=== PATIENT | female | born 1990 | race Caucasian/White ===

== ENCOUNTER 2024-11-04 13:53 | Outpatient (REF) | payer MEDICARE, MEDICAID, SELFPAY ==
[2024-11-04 15:22] LABS: MANUAL DIFF FLAG NO
[2024-11-04 17:32] LABS: Hematocrit 37.6 % (37.0-47.0); Hemoglobin 12.6 g/dl (12.0-16.0); Imm Gran Abs Auto 0.02 X10*3/uL (0.00-0.03); Imm Gran Pct Auto 0.5 % (0.0-0.4); Lymphocytes Absolute Auto 1.1 X10*3/uL (1.2-4.9); Mean Corpuscular HGB Conc 33.5 g/dl (31.0-35.0); Mean Corpuscular Hemoglobin 31.0 pg (27.0-33.0); Mean Corpuscular Volume 92.6 fL (80.0-98.0); NRBC Abs Auto 0.000 X10*3/uL (0.0-0.012); NRBC Pct Auto 0.0 /100WBC (0.0-0.2); Platelet Count 261 X10*3/uL (160-400); Red Blood Count 4.06 X10*6/uL (4.20-5.50); White Blood Count 3.8 X10*3/uL (4.8-10.8)
[2024-11-04 18:03] LABS: Alanine Aminotransferase 24 U/L (0-31); Albumin Level 4.3 g/dL (3.5-5.0); Alkaline Phosphatase 79 U/L (39-117); Anion Gap 11 (12-20); Aspartate Amino Transferase 19 U/L (5-31); Blood Urea Nitrogen 12 mg/dL (9-16); Calcium 9.3 mg/dL (8.4-10.2); Carbon Dioxide 23 mmol/L (22-29); Chloride 112 mmol/L (96-108); Estimated Glomerular Filt Rate > 60; Potassium 4.4 mmol/L (3.3-5.1); Sodium 142 mmol/L (135-145); Total Protein 7.1 g/dL (6.5-8.0)
[2024-11-04 18:27] LABS: Folate 12.8 ng/mL (> or = 4.0); Vitamin B12 374 pg/mL (200-900)
== END 2024-11-04 13:54 | disposition home or self-care (01) ==
LOC: HO.LAB 13:53
PROVIDERS: PCP Physician Assistant Medical; Visit Provider Physician Assistant Medical
DX: G40.909 Epilepsy, unspecified, not intractable, without status epilepticus (principal); E03.9 Hypothyroidism, unspecified; E66.9 Obesity, unspecified; F81.9 Developmental disorder of scholastic skills, unspecified; Z79.890 Hormone replacement therapy; Z79.899 Other long term (current) drug therapy; Z68.39 Body mass index [BMI] 39.0-39.9, adult
CPT/HCPCS: 36415; 80053; 82607; 82746; 84443; 85025

== ENCOUNTER 2025-02-02 10:45 | Outpatient (AMB) | payer OTHER, SELFPAY ==
--- OUTSIDE RECORDS SUMMARY | 2025-01-26 09:55 | XMS_ITS | Encounter Summary ---
Author Organization [facility] Address [address] [place] [phone] Phone Care Team Providers Care Deputy Director Of Finance Name Role Phone Passer, Joy RIVERA Primary Care Provider + Reason for Visit * Auth/Cert (Routine) Specialty Diagnoses / Procedures Referred By Tae t Referred To Contact Diagnoses Localization-related (focal) (partial) symptomatic epilepsy and epileptic syndromes with complex partial seizures, intractable, without status epilepticus Procedures PA EEG PHYS/QHP EA INCR>12HR<26HR AFTER 24HR W/VEEG Referral ID Status Reason Start Date Expiration Date Visits Re quested Visits Authorized [id number] 1 1 Encounter Details Date Type Department Care Team (Latest Contact Info) Description 01/26/2025 9:55 AM EST - 01/30/2025 12:44 PM EST Hospital Encounter [facility] [address] [place] [id number] Margot Martin MD, PhD 60 [facility] [id number] [place] [address] [email or web address] Discharge Disposition: Home or Self Care Social History Tobacco Use Types Packs/Day Years Used Date Smoking Tobacco: Never Smokeless Tobacco: Never Education Answer Date Recorded Are you interested in more education? Not on marie e 10/14/2024 Are you concerned about learning? Not on file 10/14/2024 No 10/14/2024 No 10/14/2024 Food Answer Date Recorded Within the past 6 months we worried whether our food would run out before we got money to buy more. Never True 01/26/2025 Within the past 6 months the food we bought just didn't last and we didn't have enough money to get more. Never True Residential Stability Answer Date Recor ded What is your housing situation today? I am stayi ng with others 01/26/2025 How many times have you move d in the past 12 months? One time 01/26/2025 Paying for Meds Answer Date Recorded Do you have trouble paying for medicines? No 01/26/2025 Paying Utility Bills Answer Date Record ed Do you have trouble paying your heating or elect ricity bill? No 01/26/2025 Transportation Answer Date Recorded Has the lack of transportati on kept you from medical appointments or from getting medications? No 01/26/2025 Digital Access Answer Date Recorded No 01/26/2025 Yes 01/26/2025 Do you have reliable internet access at home? Ye s 01/26/2025 Do you have a device (e.g., phone, tablet, computer) with a working camera? Yes 01/26/2025 Intimate Partner Violence Answer Date R ecorded Are you denied basic needs s uch as food, clothing, or medical care? No 01/26/2025 In the past 12 months have y ou been in a relationship with a person who hurts, threatens, or tries to control you? No 01/26/2025 Are you denied basic needs s uch as food, clothing, or medical care? No 01/26/2025 In the past 12 months have y ou been in a relationship with a person who hurts, threatens, or tries to control you? No 01/26/2025 Comments Unknown Sex and Gender Information Value Date Recorded Sex Assigned at Female 12/16/2024 8:49 PM EDT Legal Sex Female 10:05 AM EDT Gender Identity Female 12/16/2024 8:49 PM EDT Sexual Orientation Not on file documented as of this encounter Last Filed Vital Signs Vital Sign Reading Time Taken Comments Blood Pressure 121/69 01/30/2025 4:13 AM EST Pulse 88 01/30/2025 10:00 AM EST Temperature 37.1 C (98.7 F) 01/30/2025 4:13 AM EST Respiratory Rate 18 01/30/2025 4:13 AM EST Oxygen Saturation 97% 01/30/2025 10: 00 AM EST Inhaled Oxygen Concentration - - Weight 101.4 kg (223 lb 8.7 oz) 025 10:35 AM EST Height 162.6 cm (5' 4 ) 01/26/2025 10:3 5 AM EST Body Mass Index 38.37 01/26/2025 10:35 AM EST documented in this encounter Functional Status * Calculated C-SSRS Risk Score (Lifetime/Recent) Answer Date of Assessment Author No Risk Indicated 01/26/2025 10:15 AM EST Florin Khan RN * [place] Suicide Severity Rating Scale (Screener/Recent Self-Report) Question Answer Date of Assessment Author 1. Wish to be (Past 1 Month) No 01/26/2025 10:15 AM EST Myra Valero RN 2. Non-Specific Active Suici zeynep Thoughts (Past 1 Month) No 01/26/2025 10:15 AM EST Samantha Valero RN 6. Suicidal Behavior (Lifetime) No 10:15 AM EST Florin Valero RN documented as of this encounter Discharge Instructions * Discharge Instructions* Ria Edwards CNP - 01/27/2025 8:21 AM EST Dear Tawana Machado, You were admitted to the [facility] Epilepsy Monitoring Unit because of breakthrough seizures despite yourhome antiseizure medications of Keppra (Levetiracetam) 2000mg twice a day, Oxcarbazepine 600mg in the am and 1200mg in the pm, Zonisamide 400mg nightly, and Lacosamide 50mg nightly. Your outpatient e pileptologist recommended an admission to better characterize your seizures in order to change medications slightly and potentially prepare for surgical planning We captured 2 generalized tonic clonic and 1 focal impaired aware event. Your EEG showed seizures coming from the right frontal part of your brain. Based on these results, we restarted you on your home medications and monitored you for 24hours prior to discharge. You did not have any further seizures and you tolerated the medications well. When you go home, your antiseizure medication regimen should be: Keppra (Levetiracetam) 2000mg twice a day Oxcarbazepine 300mg in the am and 600mg in the pm Zonisamide 400mg nightly, Lacosamide 100mg twice a day. We would like to make you aware of Sudden Unexpected in Epilepsy (SUDEP) which is a rare but serious complication that can occur in individuals with epilepsy. While the exact cause of SUDEP is not fully understood, it is believed to be related to a combination of factors. Although the thoughtof SUDEP can be frightening, there are steps we can take to minimize the risk including: medicationadherence, regular follow-up, lifestyle management, safety precautions, education and support. [email or web address]://[email or web address].com/complications-risks/cyiza-nroox-rtcmz If you have any questions or concerns, please reach out. Number to page for coverage for [phone] ask for your Doctor to be paged. During weekday hours, the number is [phone] We are in the process of arranging a follow-up appointment for you, and will message you via [facility] once this is scheduled. If you do not hear from us in the next several days please call [phone] in order to schedule your appointment. It has been a pleasure caring for you this admission, and we wish you the best of health and wellness. - [facility] Epilepsy Team * Provider Post Hospital Follow Ups* Ria Edwards CNP - 01/30/2025 10:06 AM EST Discharged on: LEV 2000mg BID OXC 300/600mg LCM 100mg BID ZNS 400mg qHS Consider lowering OXC slowly in out patient setting documented in this encounter Medications at Time of Discharge clotrimazole-beta methasone (LOTRISONE) cream 11/16/2024 folic acid (FOLVITE) 1 MG tablet Take 1 tablet by mouth every morning. 11/05/2024 levETIRAcetam (KEPPRA) 1000 MG IMMEDIATE release tabletIndications :Localization-rel ated symptomatic epilepsy and epileptic syndromes with complex partial seizures, intractable, without status epilepticus Take 2 tablets (2,000 mg total) by mouth 2 (two) times a day. 120 tablet 11 12/16/2024 levothyroxine (SYNTHROID, LEVOTHROID) 112 MCG tablet TOME 1 TABLETA POR BOCA TODOS LOS PAULINO EN LA HYDE PARKANA 09/16/2024 NAYZILAM 5 mg/spray (0.1 mL) [place] nasal sprayIndications: Localization-rela jose symptomatic epilepsy and epileptic syndromes with complex partial seizures, intractable, without status epilepticus USE 5 MG (1 SPRAY) ONCE A SINGLE DOSE IN 1 NOSTRIL NEEDED (TO PREVENT SEIZURE CLUSTERS) 2 each 01/20/2025 zonisamide (ZONEGRAN) 100 MG capsuleIndication s:Localization-re lated symptomatic epilepsy and epileptic syndromes with complex partial seizures, intractable, without status epilepticus Take 4 capsules (400 mg total) by mouth nightly at bedtime. 120 capsule 11 12/16/2024 lacosamide (VIMPAT) 100 mg Tab Take 1 tablet (100 mg total) by mouth 2 (two) times a day. 180 tablet 1 01/29/2025 OXcarbazepine (TRILEPTAL) 300 MG IMMEDIATE release tablet Take 1 tablet (300 mg total) by mouth daily. 90 tablet 1 01/30/2025 OXcarbazepine (TRILEPTAL) 600 MG IMMEDIATE release tablet Take 1 tablet (600 mg total) by mouth nightly at bedtime. 90 tablet 1 01/29/2025 documented as of this encounter Progress Notes Only the most recent of 3 notes is shown. * Aspen Fernandez RN - 01/30/2025 12:42 PM EST Nursing Progress Note Discharge Note: DC instructions reviewed with the patient's parents and aunt, verbal understanding noted. Left unit via wheelchair, her family is providing the ride home. Belongings and paperwork sent. documented in this encounter H&P Notes * Noni Owen CNP - 01/26/2025 2:52 PM EST . EPILEPSY EBB ADMISSION NOTE Patient detail: Tawana Machado : 1990 AGE: 35 y.o. Handedness: right-handed PCP: Joy Garland PA Referring Physician (to EBB): Dr. Urabn EBB admission date: 01/26/25 Anticipated duration of inpatient stay: 3-5 days CC: Medically refractory epilepsy HPI Tawana Machado is a 35 y.o. 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 Urban on 12/16/2024. She was referred by Dr. Maki Goetz at [facility] (switching providers given insurance change). She had history of epilepsy since age 6. Previously she had generalized tonic- clonic seizures 2-3 times per year. Per EHR, starting in April 2024 she had evolution of seizures with lip cyanosis and shivering without stiffness occurring 1-2 times per week. Current ASM regimen as listed below. There was concern for intolerable side effects including dizziness, weakness, and irritability, and side effects worse since starting lacosamide. Seizure frequency decreased after starting locosamide Parents are concerned for her fall risk. She had EMU admission in [place] in 2019, records not available. She had no seizures since Oct 12 until 01/13 and then had one last night. On Jan 13 she had a ~4 min seizure with full body shaking. It was the biggest seizure they had ever seen in her. They called 911 because it lasted so long and took time to come back to baseline. Shehad trouble breathing during it and her lips got blue. They used the nayzilam but it did not seem to work as fast at it should. Last night she had a seizure last night with shaking and confusion, it l asted about 3 minutes. Seizures became more frequent in March and they moved here from [place] in July. She is admitted for phase I pre-surgical evaluation, likely not candidate for resection given diffuse malformation. May consider neurostimulation device. Additionally, goal of admission to adjust ASMs given side effect profile. Trileptal was decreased after 12/16/24 visit to evaluate if dizziness and balance concerns improve. She lives with mother and father. They sleep in the same room with her and watch overnight. Current ASMs: -Keppra 2g BID -Oxcarbazepine 600 mg AM/ 1200 mg qhs (decreased from 900/1200 at last visit with Dr. Urban) -Zonisamide 400 mg qhs -Lacosamide 50 mg BID (has not been giving it in the morning) -Midazolam nasal rescue ROS General: The patient denies recent fevers, chills, or sick contacts. Neuro: The patient denies recent headaches, double vision, or blurry vision. Denies focal numbness or weakness. recent falls. +imbalance is less since no lacosamide in AM Resp/Cardiac: The patient denies recent cough, chest pain GI/: The patient denies recent abdominal pain, currently menstruating Endo: The patient denies recent weight loss, weight gain Psych: Reports mood as cool is some times irritable in mornings Past History Description of spells/seizures: Semiology Type I Patient's own word description of event: full body rigid ILAE Classification (if applicable): Unknown onset unclassified (due to inadequate information or inability to place in other categories) Aura: no Ictal: During the seizure, the patient will have high pitched inspiration, unresponsive, arms posturing out, lips blue, tongue bite, occasional urinary incontinence Seizure duration:3-4 min Post ictal: confusion Frequency: ~1-2x per week->now only 2x this current month Triggers: unknown Semiology Type II Patient's own word description of event: shivering ILAE Classification (if applicable): Unknown onset unclassified (due to inadequate information or inability to place in other categories) Aura: no Ictal: During the seizure, the patient will have R>L shaking says cu cu cu similar etiology totype I. Seizure duration: 3 to 4 min. Post ictal: 30 minutes or so of confusion, some full body rigidity Frequency: at most 1-2x per week, recently 2x this current month Triggers: unknown Prior ASMs tried: (Brand/generic name) Reason for discontinuation: Tegretol/carbamazepine (CBZ) unknown Previous investigations: EEG: Video EEG 2022: Right Temporal lobe epileptiform discharges. Routine EE06/10/2024 Right Frontotemporal epileptogenic sharps Routine EEG 04/05/2022 Normal MRI: MRI Brain August 05, 2024: Right Cerebral Hemisphere hamartomatous Overgrowth, consistent with right Hemimegalencephaly, Pachygyria/Polymicrogyria spectrum. Please see media for report. 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 Myoclonic jerks: no Photosensitivity: yes, closes R eye to light Motor milestones: delayed Language milestones: delayed; does not read, limited writing Schooling/Education: special education until age 21yr Prior episode of status epilepticus: none (possible repeated seizures one time in life) Frequency of convulsive seizures: as above Prior ICU admission: none First seizure: Age 6 Longest seizure-free time: about 1.5 yrs maybe 8 yrs ago Diurnal variation: Seizures occur only during sleep Relation to menstrual cycle: no Triggers: unknown Injuries sustained due to seizures: none but has fallen out of bed Past Medical and Surgical History: No past medical history on file. No past surgical history on file. Past psychiatric history: none No current facility-administered medications on file prior to encounter. Current Outpatient Medications on File Prior to Encounter Medication Sig Dispense Refill Last Dispense clotrimazole-betamethasone (LOTRISONE) cream Unknown (patient-reported) folic acid (FOLVITE) 1 MG tablet Take 1 tablet by mouth every morning. Unknown (patient-reported) lacosamide (VIMPAT) 50 mg Tab Take 1 tablet (50 mg total) by mouth 2 (two) times a day. (Patient taking differently: Take 50 mg by mouth nightly at bedtime.) 60 tablet 5 Unknown (outside pharmacy) levETIRAcetam (KEPPRA) 1000 MG IMMEDIATE release tablet Take 2 tablets (2,000 mg total) by mouth 2 (two) times a day. 120 tablet 11 Unknown (outside pharmacy) levothyroxine (SYNTHROID, LEVOTHROID) 112 MCG tablet TOME 1 TABLETA POR BOCA TODOS LOS PAULINO EN LA MANANA Unknown (patient-reported) OXcarbazepine (TRILEPTAL) 600 MG IMMEDIATE release tablet Take 1 tablet (600 mg total) by mouth every morning AND 2 tablets (1,200 mg total) every evening. 90 tablet 11 Unknown (outside pharmacy) zonisamide (ZONEGRAN) 100 MG capsule Take 4 capsules (400 mg total) by mouth nightly at bedtime. 120 capsule 11 Unknown (outside pharmacy) [DISCONTINUED] midazolam (NAYZILAM) 5 mg/spray (0.1 mL) [place] nasal spray 1 spray by Intranasal route once as needed for seizures (to prevent seizure clusters). 2 each 0 Unknown (outside pharmacy) Drug allergies: No Known Allergies Family History: Aunt with epilepsy Social History: As above in HPI Social History Social History Narrative Not on file Exam Examination: VITALS: Vital Signs 01/25 0701 01/26 0700 01/26 0701 01/26 1513 Most Recent Temperature (??C) 36.9 36.9 (98.4) 01/26 1035 Heart Rate 69 - 79 69 01/26 1300 BP 136/64 136/64 01/26 1035 Respiratory Rate 14 - 17 14 01/26 1300 SpO2 (%) 98 - 100 100 01/26 1300 GEN'L: Sierra Leonean speaking only (mother translated-decline hospital it help desk associate). Patient is resting comfortably in no acute distress, appears happy. Increased BMI The patient is accompanied by her mother Che HEENT: Moist mucous membranes, no scleral icterus, gingival hyperplasia NECK: Supple, full range of motion. HEART: Sinus rhythm, normal rate. LUNG: Breathing comfortably on room air, no increased work of breathing, no conversational dyspnea. ABD: Soft, non-tender, non-distended. EXT: Warm and well-perfused, bilateral lower extremity non pitting edema, muscle mass R>L arm/leg SKIN: No rashes, bruises, or ecchymoses. Hypopigmented lesions of the skin NEUROLOGICAL MENTAL STATUS: Developmental Delay, Tawnaa is oriented only to self (baseline). Speech non- fluent without paraphasic errors, psychomotor slowing. Followed simple and complex commands without difficulty. Concentration, attention and memory were delayed. Able to name the days of the week forward. Was able to remember 3 words after 3 mins. Does not read, limited writing CRANIAL NERVES II-XII: CN II. Visual cortez full to confrontation in each eye individually. Pupils equal and symmetricallyreactive to light (3 mm --> 2 mm) and accommodation. CN III, IV, : EOM were intact (patient had difficulty tracking to the left- suspect participatory difficulties) w/o nystagmus or saccadic intrusion. No ptosis. CN V: Light-touch normal on face bilaterally. CN VII: Left facial asymmetry CN VIII: Hearing grossly normal to finger rub at arm's length bilaterally. CN IX, X: No dysarthria. CN XI: Shoulder shrugs normal bilaterally. CN XII: Left tongue deviation MOTOR: Increased bulk right>left, without bradykinesia, fasciculations, myoclonus or tremor. No pronator drift. Strength 5/5 throughout bilateral upper and lower extremities Sensation: Diffusely intact and symmetric to light touch throughout bilateral upper and lower extremities. No extinction.? Reflexes: Deep tendon reflexes normal and symmetric bilaterally at the triceps, biceps, brachioradialis, quadriceps and gastrocnemius/soleus. Toes were up going. Coordination: Cbxpos-mzug-meblee without dysmetria. No truncal ataxia. Gait: Deferred Data/Results Labs: 4.48 \ 12.3 / 266 / 37.5 \ 01/26 1243 140 108* 8 / 82 4.3 23 0.76 \ 01/26 1243 Prior ASM Levels: Last ASM levels: Lab Results Component Value Date OXCARB 35 12/16/2024 LEVET 51.0 (H) 01/26/2025 LEVET 42.9 12/16/2024 LACSMDE 1.0 12/16/2024 Imaging: MRI Brain [[id number]] 01/15/2025 (Final) Impression 1. 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 2. Hypoplastic/dysplastic corpus callosum. 3. Partially empty sella. Signed by: Amaya Antonio MD on 01/19/2025 1:23 PM No results found for this or any previous visit from the past 182 days 15 hours. Assessment/Plan Assessment: Tawana Machado is a 35 y.o. right-handed [place]an-speaking developmentally delayed woman with a past medical history significant for hypomelanosis of Estiven, right aris-megalencephaly, pachygyria/polymicrogyria spectrum and medically refractory epilepsy who presents to the EMU for phase 1 surgical evaluation and medication adjustment Outpatient records reviewed. Based on the patient's history, Tawana continues with breakthrough seizures despite medication regime of 4 ASMs (LEV, OXC, ZNS, and LCM) and intolerable adverse effects including dizziness. Her outpatient epileptologist would like to attempt to remove OXC and increase LCM. Plan for antiseizure medications 01/26/25 is LEV 2000/2000mg, OXC 600/600mg, ZNS 400mg qhs, LCM 50mg qhs Tentative plan for 01/27/25 LEV 2000/2000, OXC 300/tbd, ZNS 400mg qhs, LCM 50mg qhs Plan: # Medically refractory epilepsy # R hemimegalencephaly Focal onset impaired awareness Purpose of Admission: phase 1 surgical evaluation and medication adjustment Seizure/Event Semiology: verbalization cu,cu,cu or high pitched inspiration followed by behavioral arrest, cyanosis, facial flushing, +/- posturing, rigid vs shaking and progression to bilateral motor activity Home ASM Regimen: LEV 2g bid, OXC 600/1200mg (on 12/16 decreased from 900/1200mg), ZNS 400mg qhs, LCM 50mg qhs (ordered for 50mg bid) Diagnostics: Admission Screening Labs: [ ] CBC/diff, Lytes, BUN/Cr, Ca, Phos, Mg, LFTs, PT/INR/PTT, ASM Levels, U/A [ ] Serum and Urine Toxicology Screen?? ? Admission ECG: [ ] rate: rhythm: PA Interval: QTc: Epilepsy Monitoring Unit Standard of Care: Monitoring: - Continuous LTM/Video Monitoring? - Continuous pulse oximetry, cardiac monitoring - staff supervision of transfers Patient Safety Considerations: - Rescue Medication Plan (VIMPAT) - Per Dr Martin for GTC >3 minutes, give IV ativan 1mg PRN - for GTC > 5 minutes, give IV VIMPAT 100mg PRN - notify epilepsy fellow [id number] for any GTC - Seizure Precautions (bed rails padded, doors left open for clinical observation) - Mobility limited to OOB in Room with Supervision Patient Comfort while Undergoing LTM EEG - Benadryl 25 mg PO Q 6 hrs PRN scalp itching, - Tylenol 650 mg PO Q6h PRN for headache? - melatonin 3-6mg PRN for difficulty sleeping - alert RC for any skin breakdown noted at lead sites Provoking Measures - sleep deprivation - hyperventilation - photic stimulation # R hemimegalencephaly Malformation of cortical development. #Hypothyroidism -c/h synthroid 112 mcg daily # Pain: Tylenol PRN # Bowel: Miralax PRN Admission Bundle [ ] DVT ppx: SCD [ ] Home Medications: Confirmed and updated in [facility] (orders as noted above) [ ] Allergies: Confirmed and updated in [facility] [ ] PCP: Joy Garland PA (as documented in the chart) [ ] Code Status: Full Code This has been confirmed with patient and updated in [facility]) .Noni Owen MSN, BSN, AGAP- Neurology, Department of Epilepsy [place] [facility] [id number] Cosigned by Margot Martin MD, PhD at 01/26/2025 8:56 PM EST Associated attestation - Margot Martin MD, PhD - 01/26/2025 8:56 PM EST I saw and evaluated the patient Tawana Machado [id number] with the B EMU team. Please see theNP's note for details on the HPI, ROS, PMH, medications, allergies, family history, social history,diagnostic tests, and assessment and plan. I confirmed saini aspects of the history and physical examination with the patient and formulated the assessment and plan with the team. Please see SYNTHETIC FILAMENT SPINNER's note for complete details, with which I agree. We recommend EMU admission for phase I presurgical evaluation, but also to adjust his ASMs. P. Jeanie Martin MD PhD [facility] Neurology/Epilepsy documented in this encounter Nursing Notes Only the most recent of 5 notes is shown. * Iram Sewell, RN - 01/29/2025 6:25 PM EST Nursing Note Pt maintained on LTM and seizure precautions per [facility] policy. All safety checks completed and pt safety maintained. Pt on current reg: Pt off all AEDs today. NEURO: A&Ox1-3, baseline developmental delay. PERRL, RAQUEL VF, EOMs intact. Slight L facial and slight L tongue. VELAZQUEZ, 5/5 in all extremities. Denies N/T, no R drift noted today. Neuro checks q8. CARDS: On telemetry and daily EKGs, NSR. Low grade temperature noted (99.6 and 99.5F) SBP goal maintained <160, BPs soft today, see flowsheets. Non-pitting edema in BLE. L forearm PIV flushed and patent. RESP: On pulse-ox, satting WNL on RA, LSC. GI/: Continent of both, ambulates to BR. Regular diet, meds taken whole w/ thins. LBM 01/25, PTN Miralax given, more bowel meds added. SKIN: Skin grossly intact. PAIN: Pt did not c/o pain. MS: Pt able to ambulate to the BR w/ 1 assist. PLAN: No more planned seizure activity. Aunt in room to provide support and translation. Senior Operations Manager refused by both pt and aunt, education provided. Potential d/c home tomorrow. Continue plan of care. documented in this encounter Miscellaneous Notes Only the most recent note of each type is shown. * Plan of Care - Kristin Wilkerson RN - 01/30/2025 6:32 AM ESTOnly the most recent of 3 notes of type Plan of Care is shown. LTM/sz precautions maintained. No events this shift. Back on all ASMs. Exam the same, AVSS. PO ducolax given for constipation, Plan to d/c home today. Safety maintained. Problem: Fall Risk - Adult Goal: Absence of falls during hospitalization Outcome: Progressing Goal: Minimize injury from falls during hospitalization Outcome: Progressing Problem: Venous Thromboembolism (VTE), Risk or Actual - Adult/Pediatric Goal: Absence or resolution of venous thromboembolism (VTE) during hospitalization Outcome: Progressing Problem: Seizure, at Risk or Actual - Adult/Pediatric Goal: Absence of seizures during hospitalization Outcome: Progressing Goal: Control of seizures during hospitalization Outcome: Progressing Goal: Minimize risk of injury due to seizure during hospitalization Outcome: Progressing Problem: Goals of Care Knowledge, Impaired - Neurological Condition - Adult Goal: Patient/Family/Caregiver communicates understanding of disease processes and goals of care bydischarge Outcome: Progressing * Hospital Course - Ria Edwards CNP - 01/29/2025 4:05 PM EST ADMISSION [facility] 01/26/2025 CC: Medically refractory epilepsy [facility] Tawana Machado is a 35 y.o. 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 Urban on 12/16/2024. She was referred by Dr. Maki Goetz at [facility] (switching providers given insurance change). She had history of epilepsy since age 6. Previously she had generalized tonic- clonic seizures 2-3 times per year. Per EHR, starting in April 2024 she had evolution of seizures with lip cyanosis and shivering without stiffness occurring 1-2 times per week. Current ASM regimen as listed below. There was concern for intolerable side effects including dizziness, weakness, and irritability, and side effects worse since starting lacosamide. Seizure frequency decreased after starting locosamide Parents are concerned for her fall risk. She had EMU admission in [place] in 2018, records not available. She had no seizures since Oct 12 until 01/13 and then had one last night. On Jan 13 she had a ~4 min seizure with full body shaking. It was the biggest seizure they had ever seen in her. They called 911 because it lasted so long and took time to come back to baseline. Shehad trouble breathing during it and her lips got blue. They used the nayzilam but it did not seem to work as fast at it should. Last night she had a seizure last night with shaking and confusion, it l asted about 3 minutes. Seizures became more frequent in March and they moved here from [place] in July. She is admitted for phase I pre-surgical evaluation, likely not candidate for resection given diffuse malformation. May consider neurostimulation device. Additionally, goal of admission to adjust ASMs given side effect profile. Trileptal was decreased after 12/16/24 visit to evaluate if dizziness and balance concerns improve. She lives with mother and father. They sleep in the same room with her and watch overnight. Current ASMs: -Keppra 2g BID -Oxcarbazepine 600 mg AM/ 1200 mg qhs (decreased from 900/1200 at last visit with Dr. Urban) -Zonisamide 400 mg qhs -Lacosamide 50 mg BID (has not been giving it in the morning) -Midazolam nasal rescue ROS General: The patient denies recent fevers, chills, or sick contacts. Neuro: The patient denies recent headaches, double vision, or blurry vision. Denies focal numbness or weakness. recent falls. +imbalance is less since no lacosamide in AM Resp/Cardiac: The patient denies recent cough, chest pain GI/: The patient denies recent abdominal pain, currently menstruating Endo: The patient denies recent weight loss, weight gain Psych: Reports mood as cool is some times irritable in mornings Past History Description of spells/seizures: Semiology Type I Patient's own word description of event: full body rigid ILAE Classification (if applicable): Unknown onset unclassified (due to inadequate information or inability to place in other categories) Aura: no Ictal: During the seizure, the patient will have high pitched inspiration, unresponsive, arms posturing out, lips blue, tongue bite, occasional urinary incontinence Seizure duration:3-4 min Post ictal: confusion Frequency: ~1-2x per week->now only 2x this current month Triggers: unknown Semiology Type II Patient's own word description of event: shivering ILAE Classification (if applicable): Unknown onset unclassified (due to inadequate information or inability to place in other categories) Aura: no Ictal: During the seizure, the patient will have R>L shaking says cu cu cu similar etiology totype I. Seizure duration: 3 to 4 min. Post ictal: 30 minutes or so of confusion, some full body rigidity Frequency: at most 1-2x per week, recently 2x this current month Triggers: unknown Prior ASMs tried: (Brand/generic name) Reason for discontinuation: Tegretol/carbamazepine (CBZ) unknown Previous investigations: EEG: Video EEG 2022: Right Temporal lobe epileptiform discharges. Routine EE06/10/2024 Right Frontotemporal epileptogenic sharps Routine EEG 04/05/2022 Normal MRI: MRI Brain August 05, 2024: Right Cerebral Hemisphere hamartomatous Overgrowth, consistent with right Hemimegalencephaly, Pachygyria/Polymicrogyria spectrum. Please see media for report. 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 Myoclonic jerks: no Photosensitivity: yes, closes R eye to light Motor milestones: delayed Language milestones: delayed; does not read, limited writing Schooling/Education: special education until age 21yr Prior episode of status epilepticus: none (possible repeated seizures one time in life) Frequency of convulsive seizures: as above Prior ICU admission: none First seizure: Age 6 Longest seizure-free time: about 1.5 yrs maybe 8 yrs ago Diurnal variation: Seizures occur only during sleep Relation to menstrual cycle: no Triggers: unknown Injuries sustained due to seizures: none but has fallen out of bed Past Medical and Surgical History: No past medical history on file. No past surgical history on file. Past psychiatric history: none Medications ordered prior to the current encounter No current facility-administered medications on file prior to encounter. Current Outpatient Medications on File Prior to Encounter Medication Sig Dispense Refill Last Dispense clotrimazole-betamethasone (LOTRISONE) cream Unknown (patient-reported) folic acid (FOLVITE) 1 MG tablet Take 1 tablet by mouth every morning. Unknown (patient-reported) lacosamide (VIMPAT) 50 mg Tab Take 1 tablet (50 mg total) by mouth 2 (two) times a day. (Patient taking differently: Take 50 mg by mouth nightly at bedtime.) 60 tablet 5 Unknown (outside pharmacy) levETIRAcetam (KEPPRA) 1000 MG IMMEDIATE release tablet Take 2 tablets (2,000 mg total) by mouth 2 (two) times a day. 120 tablet 11 Unknown (outside pharmacy) levothyroxine (SYNTHROID, LEVOTHROID) 112 MCG tablet TOME 1 TABLETA POR BOCA TODOS LOS PAULINO EN LA MANANA Unknown (patient-reported) OXcarbazepine (TRILEPTAL) 600 MG IMMEDIATE release tablet Take 1 tablet (600 mg total) by mouth every morning AND 2 tablets (1,200 mg total) every evening. 90 tablet 11 Unknown (outside pharmacy) zonisamide (ZONEGRAN) 100 MG capsule Take 4 capsules (400 mg total) by mouth nightly at bedtime. 120 capsule 11 Unknown (outside pharmacy) [DISCONTINUED] midazolam (NAYZILAM) 5 mg/spray (0.1 mL) [place] nasal spray 1 spray by Intranasal route once as needed for seizures (to prevent seizure clusters). 2 each 0 Unknown (outside pharmacy) Drug allergies: No Known Allergies Family History: Aunt with epilepsy Social History: As above in HPI Social History Social History Narrative Not on file Exam Examination: VITALS: Vital Signs 01/25 0701 01/26 0700 01/26 0701 01/26 1513 Most Recent Temperature (??C) 36.9 36.9 (98.4) 01/26 1035 Heart Rate 69 - 79 69 01/26 1300 BP 136/64 136/64 01/26 1035 Respiratory Rate 14 - 17 14 01/26 1300 SpO2 (%) 98 - 100 100 01/26 1300 GEN'L: Sierra [place]an speaking only (mother translated-[facility] it help desk associate). Patient is resting comfortably in no acute distress, appears happy. Increased BMI The patient is accompanied by her mother Che HEENT: Moist mucous membranes, no scleral icterus, gingival hyperplasia NECK: Supple, full range of motion. HEART: Sinus rhythm, normal rate. LUNG: Breathing comfortably on room air, no increased work of breathing, no conversational dyspnea. ABD: Soft, non-tender, non-distended. EXT: Warm and well-perfused, bilateral lower extremity non pitting edema, muscle mass R>L arm/leg SKIN: No rashes, bruises, or ecchymoses. Hypopigmented lesions of the skin NEUROLOGICAL MENTAL STATUS: Developmental Delay, Tawana is oriented only to self (baseline). Speech non- fluent without paraphasic errors, psychomotor slowing. Followed simple and complex commands without difficulty. Concentration, attention and memory were delayed. Able to name the days of the week forward. Was able to remember 3 words after 3 mins. Does not read, limited writing CRANIAL NERVES II-XII: CN II. Visual cortez full to confrontation in each eye individually. Pupils equal and symmetricallyreactive to light (3 mm --> 2 mm) and accommodation. CN III, IV, : EOM were intact (patient had difficulty tracking to the left- suspect participatory difficulties) w/o nystagmus or saccadic intrusion. No ptosis. CN V: Light-touch normal on face bilaterally. CN VII: Left facial asymmetry CN VIII: Hearing grossly normal to finger rub at arm's length bilaterally. CN IX, X: No dysarthria. CN XI: Shoulder shrugs normal bilaterally. CN XII: Left tongue deviation MOTOR: Increased bulk right>left, without bradykinesia, fasciculations, myoclonus or tremor. No pronator drift. Strength 5/5 throughout bilateral upper and lower extremities Sensation: Diffusely intact and symmetric to light touch throughout bilateral upper and lower extremities. No extinction.? Reflexes: Deep tendon reflexes normal and symmetric bilaterally at the triceps, biceps, brachioradialis, quadriceps and gastrocnemius/soleus. Toes were up going. Coordination: Schnbe-nnzl-muwypy without dysmetria. No truncal ataxia. Gait: Deferred Data/Results Labs: 4.48 \ 12.3 / 266 / 37.5 \ 01/26 1243 140 108* 8 / 82 4.3 23 0.76 \ 01/26 1243 Prior ASM Levels: Last ASM levels: Lab Results Component Value Date OXCARB 35 12/16/2024 LEVET 51.0 (H) 01/26/2025 LEVET 42.9 12/16/2024 LACSMDE 1.0 12/16/2024 Imaging: MRI Brain [[id number]] 01/15/2025 (Final) Impression 1. 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 2. Hypoplastic/dysplastic corpus callosum. 3. Partially empty sella. Signed by: Amaya Antonio MD on 01/19/2025 1:23 PM No results found for this or any previous visit from the past 182 days 15 hours. Assessment/Plan Assessment: Tawana Machado is a 35 y.o. right-handed [place]an-speaking developmentally delayed woman with a past medical history significant for hypomelanosis of Estiven, right aris-megalencephaly, pachygyria/polymicrogyria spectrum and medically refractory epilepsy who presents to the EMU for phase 1 surgical evaluation and medication adjustment Outpatient records reviewed. Based on the patient's history, Tawana continues with breakthrough seizures despite medication regime of 4 ASMs (LEV, OXC, ZNS, and LCM) and intolerable adverse effects including dizziness. Her outpatient epileptologist would like to attempt to remove OXC and increase LCM. HOSPITAL COURSE BY PROBLEM 01/26/2025 - 01/30/25 #Refractory Focal Epilepsy The patient was admitted to the epilepsy monitoring unit for long-term video EEG monitoring. On admission the patient underwent basic screening labs including CBC with differential, CMP, mag, Phos, TSH with reflex, and serum and urine drug screen. The results of these initial screening labs were unremarkable. In addition the patient had a baseline EKG which demonstrated NSR. On admission, the patient's home antiseizure medications were: LEV 2000mg BID, OXC 600/1200mg (on 12/16 decreased from 900/1200mg), ZNS 400mg qhs, LCM 50mg qhs (ordered for 50mg bid). The patient's home antiseizure medication levels were checked which showed: LEV 51.0 OXC 33 ZNS 23 LCM 0.9 The purpose of the patient's admission was spell capture as described in HPI above. During the patient's admission their home antiseizure medications were weaned according to the following titration plan: Antiseizure medication titration plan: 01/26/25: LEV 2000mg BID, OXC 600mg BID, LCM 50mg qHS, ZNS 400mg qHS 01/27/25: LEV 2000/OFF, OXC 300/OFF, LCM OFF, ZNS 400mg qHS 01/28/25: 1mg X2 IV ativan. LEV OFF/1999, OXC OFF/OFF, LCM OFF/200mg IVP/100mg, ZNS 400mg qhs 11/20/25 1mg IV Ativan, LEV 2000/1999, OXC 300/600, LCM 100/100mg, ZNS 400mg qhs Events Captured: 01/28/25: @ 0512 GTC with left head turn @ 3:15pm had GTC w/ L head deviation, BUE tonic posturing and BLE clonic, lasting 2-2.5? Min, got ativan x1 1mg. Loaded with vimpat 200 mg IV and ASMs restarted w/ vimpat 100 bid, zonisamide 400 mg nightly, keppra 2g bid @23:16 had onset of seizure with left head turn progressing to tremulousness and concern for GTC per RN, lasted ~3-4 minutes and received IV ativan 1 mg x1 per contingency. Seizure onset 1 unclear, 2 probable left, and 1 electrographic right Pertinent EEG findings: The record is otherwise abnormal due to: 1) Frequent right frontocentral sharp waves, maximal at Fp2, F4 and Fz, at times occurring in runs up to 9 seconds, at a frequency up to 2-2.5 Hz 2) Occasional to frequentright frontocentral lateralized rhythmic delta activity (LRDA) at a frequency of 1-2 Hz, lasting up to 20 seconds. 3) Occasional generalized rhythmic delta activity (GRDA), some of which last up to 10 seconds 4) Near-continuous theta>delta slowing over the right hemisphere. These findings are consistent with the ictal and interictal manifestations of focal right frontocentral epilepsy. Based on the EEG findings of this admission, ictal and interictal manifestations of focal right frontocentral epilepsy. Having captured the above data, the patient was restarted on their home medications and monitored for 24h without further seizures prior to discharge. The patient was discharged on an antiseizure medication regimen of: LEV 2000mg BID OXC 300/600mg LCM 100mg BID ZNS 400mg qHS The patient will follow-up with in [facility] and with Dr. Urban documented in this encounter Plan of Treatment Upcoming Encounters Date Type Department Care Team (Late st Contact Info) Description 02/19/2025 9:30 AM EST Telemedicine [facility], Department of Neurology [address] [place] [address] Ria Edwards CNP [address] [place] [id number] [email or web address] 05/14/2025 9:30 AM EST Telemedicine [facility], Department of Neurology [address] [place] [address] Ria Edwards CNP [address] [place] [id number] [email or web address] 01/05/2026 2:30 PM EDT Office Visit [facility], Department of Neurology [address] [place] [address] Celso Urban MD, PhD [address] [place] [address] [email or web address] Pending Results Name Type Priority Associated Diagnoses Date /Time EEG Neurology Routine 01/30/2025 10: 04 AM EST documented as of this encounter Procedures Procedure Name Priority Date/Time Associated Diagnosis Comments EEG Routine 01/30/2025 10:04 AM EST Procedure Note - Sandra Feliciano MD - 01/30/2025 10:04 AM Maciel note is in progress. [facility] Epilepsy Monitoring Unit Report [facility] [place] [place] Epilepsy Unit Patient's name: Tawana Machado Patient's MRN??: [id number] ?Patient : ??1990 Patient gender: ??female Dates of the study: 01/26/25 - 01/30/25 HISTORY: 35 y.o. female with a past medical history significant forhypomelanosis of Estiven, right aris-megalencephaly, pachygyria/polymicrogyriaspectrum and medically refractory, presents to the EMU for phase 1surgical evaluation and medication adjustment. Home medications: LEV 2g BID, OXC 600 mg AM/ 1200 mg qhs, ZNS 400 mg qhs.LCM 50 mg BID TECHNICAL SUMMARY: This is a prolonged video-EEG recording with standard 10-20 and anteriortemporal electrodes. Data are recorded on an [employer] machine. Technologistsmonitor the recording for clinical events with the help of a computerprogram. DETAILS: Day 1 (01/26 - 01/27) Start time: 11:56am End time: 7:00am Medications: LEV 2g BID, OXC 600 mg BID, ZNS 400 mg qhs. LCM 50 mg BID The waking background shows good organization, consisting of [id number] uV, 10 Hz posterior alpha activity, less well formed on the right,reactive to eye closure. There is moderate beta activity bilaterally.There are frequent right frontocentral sharp waves, maximal at Fp2, F4 andFz, at times occurring in runs up to 8 seconds, at a frequency of 1.5-2Hz, and rare lateralized rhythmic delta activity (LRDA) over the rightfrontocentral region. Additionally, there is near-continuous theta>deltaslowing over the right hemisphere. Intermittent drowsiness characterized by background attenuation, slowroving eye movements and bilateral shifting theta/delta activity. Stage [id number] is characterized by further slowing, vertex waves and sleepspindles. Slow wave and REM sleep are present. Single lead EKG shows an apparent sinus rhythm of approximately 72 beatsper minute. There is no clinical event reported during this epoch. Day 2 (01/27 - 01/28) Start time: 7:00am End time: 7:00am Medications: LEV 1g AM/STOP, OXC 300 mg AM/STOP, LCM 50 mg AM/STOP, AES517 mg qhs The waking and sleeping background is as previously described for Day 1without a significant difference. Interictal discharges are noted, withsimilar characteristics and increased frequency seen compared to priorday, with frequent right frontocentral sharp waves, maximal at Fp2, F4 andFz, at times occurring in runs up to 9 seconds, at a frequency up to 2-2.5Hz, and occasional to frequent lateralized rhythmic delta activity (LRDA)over the right frontocentral region, at a frequency of 1-2 Hz, lasting upto 20 seconds. There are also occasional generalized rhythmic deltaactivity (GRDA), some of which last up to 10 seconds Single lead EKG shows an apparent sinus rhythm of approximately 72 beatsper minute. There are 2 events during this epoch. Event 1: (electrographic) Start: 2:05:03am End: 2:05:16am Clinically: Patient is asleep, no clinical change Electrographically: Right frontocentral sharp waves (maximal at Fp2, F4and Fz) occurring at a frequency of 2.5 Hz, lasting 11 seconds Event 2: (clinical) Start: 5:12:42am (electrographically) End: 5:15:00am Clinically: Patient is laying down sleeping. At 5:12:56am, she startsmoving her legs under the cover, seemingly flexing her right leg then herright arm under the covers. At 5:13:25am, she turns her head to the leftwith left gaze deviation and starts groaning with her head shaking to theleft at 5:13:36am. This is followed by increased tone of the arms(difficult to see due to her hands being under the covers) then BLEshaking at 5:13:41am and grunting. Afterwards, her BUE and BLE startshaking in a tonic then clonic pattern with an ictal cry. This stops ataround 5:14:48am but is still seen twitching at 5:14:59am Electrographically: Unclear onset, but approximately 5:12:42am with fastactivity over the right centroparietal leads (maximal at Cz, C4, P4) andrhythmic delta slowing over the left centroparietal leads (C3, P3) whichlater evolve into rhythmic delta slowing at 1-2 Hz in the bilateralcentroparietal leads at 5:12:50am then rhythmic theta slowing at 5:12:55amover the right>left frontocentral leads (F4C4>F3C3) which spreads to bothhemispheres before evolving to rhythmic delta slowing at 2.5-3 Hz thentheta slowing with superimposed sharps at 5:13:23am. The EEG is thenobscured by myogenic artifact that follows a tonic then clonic pattern,with offset at 5:15:00am. This is followed by diffuse attenuation andslowing. Day 3 (01/28 - 01/29) Start time: 7:00am End time: 7:00am Medications: ZNS 400 mg qhs, s/p LCM 200 mg load at 3:20pm then LCM 100 mgBID at 8:22pm and LEV 2000 mg BID at 8:20pm, then Ativan 1mg at 00:21am The waking and sleeping background is as previously described for Day 1without a significant difference. Interictal discharges are noted, withsimilar characteristics and similar frequency seen on prior day. There arefrequent right frontocentral sharp waves, maximal at Fp2, F4 and Fz, attimes occurring in runs up to 6 seconds, at a frequency up to 1.5-2 Hz,and occasional to frequent lateralized rhythmic delta activity (LRDA) overthe right frontocentral region, at a frequency of 1-2 Hz, lasting up to5-6 seconds. Single lead EKG shows an apparent sinus rhythm of approximately 96 beatsper minute. There are 2 clinical events during this epoch. Event 1: Start: 3:16:09pm (electrographically) End: 3:17:44pm Clinically: Patient is laying down sleeping. At 3:16:20pm, she startsmoving her right arm under the covers as well as her right leg. At3:16:40pm, she turns her head to the left with left facial grimacing andan ictal cry. She has increased tone of the BUE at 3:16:51pm followed bygeneralized tonic then clonic shaking with eyes fluttering. This stops at3:17:45pm. Electrographically: Unclear onset, but approximately 3:16:09pm withrhythmic delta slowing over the left centroparietal leads (C3, P3) whichlater evolve into rhythmic theta slowing at 5-6 Hz in the bilateralhemispheres at 3:16:26pm then diffuse rhythmic delta slowing at 2-3 Hz at3:16:33pm followed by diffuse fast activity at 3:16:36pm. Afterwards, theEEG is obscured by myogenic artifact that follows a tonic then clonicpattern, with offset at 3:17:44pm. This is followed by diffuse attenuationand slowing. Event 2: Start: 00:16:08am End: 00:18:48am Clinically: Patient is sleeping on her back with her hand turned towardsthe right. She turns her head midline at 00:16:17am and starts moving herright leg under the covers at 00:16:20am with tremors and dystonia of theright hand. She does not respond to her mom when she tries to wake her upat 00:16:45am. She moves her head to the left at 00:17:50am with left gazedeviation. Telemetry comes off at 00:18:02am, with her heart rate at 141bpm. She is unable to answer any questions or interest at 00:28:35am. Pernurse, her left arm is twitching at 00:19:04am. She is able to followcommands at 00:19:17am. Electrographically: Unclear onset, but at approximately 00:16:108am withsemi-rhythmic delta slowing over the left centroparietal leads (C3, P3)which quickly evolves into rhythmic theta slowing at 5-6 Hz in thebilateral hemispheres at 00:16:24am then diffuse rhythmic delta slowing at3-4 Hz at 00:16:41am which become superimposed by fast activity and sharpsat 00:16:55am with offset at 00:18:45am. This is followed by diffuseattenuation and slowing. Day 4 (01/29- 01/30) Start time: 7:00am End time: 7:00am Medications: ZNS 400 mg qhs, LCM 100 mg BID, LEV 2000 mg BID, OXC 300 mgAM/600 mg PM The waking and sleeping background is as previously described for Day 1without a significant difference. Interictal discharges are noted, withsimilar characteristics and similar frequency seen on prior day. There arefrequent right frontocentral sharp waves, maximal at Fp2, F4 and Fz, attimes occurring in runs up to 7 seconds, at a frequency up to 1.5-2 Hz,and occasional to frequent lateralized rhythmic delta activity (LRDA) overthe right frontocentral region, at a frequency of 1-2 Hz, lasting up to 19seconds. Single lead EKG shows an apparent sinus rhythm of approximately 96 beatsper minute. There are no clinical events during this epoch. Day 5 (01/30- 01/30) Start time: 7:00am End time: 10:03am Medications: ZNS 400 mg qhs, LCM 100 mg BID, LEV 2000 mg BID, OXC 300 mgAM/600 mg PM The waking and sleeping background is as previously described for Day 1without a significant difference. Interictal discharges are noted, withsimilar characteristics and similar frequency seen on prior day. There arefrequent right frontocentral sharp waves, maximal at Fp2, F4 and Fz, attimes occurring in runs up to 11 seconds, at a frequency up to 1.5-2 Hz,and occasional to frequent lateralized rhythmic delta activity (LRDA) overthe right frontocentral region, at a frequency of 1-2 Hz, lasting up to 9seconds. Single lead EKG shows an apparent sinus rhythm of approximately 96 beatsper minute. There are no clinical events during this epoch. IMPRESSION: This 5-day long-term monitoring video-EEG study captures anelectrographic seizure of right frontocentral onset and threeelectroclinical seizures: 1) Electroclinical seizure 1 (Day 2): onset is characterized by fastactivity over the right centroparietal leads (maximal at Cz, C4, P4) andrhythmic delta slowing over the left centroparietal leads (C3, P3) whichlater evolve into rhythmic delta slowing at 1-2 Hz in the bilateralcentroparietal leads. Clinically, the seizure is characterized by RUE/RLEflexion followed by left head deviation, groaning, ictal cry, head shakingto the let and BUE/BLE convulsions. 2) Electroclinical seizure 2 (Day 3): onset is characterized by anunclear onset, but likely left centroparietal onset. Clinically, it ischaracterized by RUE/RLE movements followed by left head deviation, ictalcry and generalized tonic then clonic shaking. 3) Electroclinical seizure 3 (Day 3): similar onset (unclear but likelyleft centroparietal), and clinically characterized by dystonia of herright hand, unresponsiveness and left head and gaze deviation. The record is otherwise abnormal due to: 1) Frequent right frontocentral sharp waves, maximal at Fp2, F4 and Fz, attimes occurring in runs up to 9 seconds, at a frequency up to 2-2.5 Hz 2) Occasional to frequentright frontocentral lateralized rhythmic deltaactivity (LRDA) at a frequency of 1-2 Hz, lasting up to 20 seconds. 3) Occasional generalized rhythmic delta activity (GRDA), some of whichlast up to 10 seconds 4) Near-continuous theta>delta slowing over the right hemisphere. 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 There are no prior EEGs to compare. Fellow: Sandra Sidhu MD I, P. Geovanna Martin MD PhD, have reviewed this study and agree with theinterpretation of this study by the epilepsy fellow, as documented above. ECG 12-LEAD Routine 01/29/2025 5:54 AM EST ECG 12-LEAD Routine 01/28/2025 5:30 AM EST ECG 12-LEAD Routine 01/27/2025 5:57 AM EST TOXICOLOGY SCREEN, URINE Routine 01/26/2025 1:49 PM EST COMPREHENSIVE METABOLIC PANEL (CMP) Routine 01/26/2025 12:43 PM EST ZONISAMIDE LEVEL Routine 01/26/2025 12:43 PM EST CBC AND DIFFERENTIAL Routine 01/26/2025 12:43 PM EST OXCARBAZEPINE LEVEL Routine 01/26/2025 12:43 PM EST LACOSAMIDE LEVEL Routine 01/26/2025 12:43 PM EST LEVETIRACETAM (KEPPRA) LEVEL Timed 01/26/2025 12:43 PM EST CBC AND DIFFERENTIAL Routine 01/26/2025 12:43 PM EST PHOSPHORUS Routine 01/26/2025 12:43 PM EST MAGNESIUM Routine 01/26/2025 12:43 PM EST ECG 12-LEAD Routine 01/26/2025 12:23 PM EST documented in this encounter Results * ECG 12-LEAD (01/29/2025 5:54 AM EST) Systolic Blood Pressure 107 mmHg [facility] Diastolic Blood Pressure 56 mmHg [facility] Ventricular Rate EKG/MIN 83 BPM [facility] Atrial Rate 83 BPM [facility] PA Interval 166 ms [facility] QRS Duration 82 ms [facility] QT Interval 374 ms [facility] QTC Interval 439 ms [facility] P [place] 44 degrees [facility] R Wave [place] 35 degrees [facility] T Wave [place] 38 degrees [facility] 01/29/2025 5:54 AM EST Narrative [facility] - 01/29/2025 4:34 PM EST Normal sinus rhythm Normal ECG When compared with ECG of 28-Jan-2025 05:30, Vent. rate has decreased by 46 bpm T wave inversion now evident in Anterior leads us Noni Owen [facility] ECG ORDERABLES Final Result [facility] * ECG 12-LEAD (01/28/2025 5:30 AM EST) Systolic Blood Pressure 153 mmHg [facility] Diastolic Blood Pressure 90 mmHg [facility] Ventricular Rate EKG/MIN 129 BPM [facility] Atrial Rate 129 BPM [facility] PA Interval 150 ms [facility] QRS Duration 74 ms [facility] QT Interval 306 ms [facility] QTC Interval 448 ms [facility] P [place] 57 degrees [facility] R Wave [place] 59 degrees [facility] T Wave [place] 44 degrees [facility] 01/28/2025 5:30 AM EST Narrative [facility] - 01/28/2025 11:03 PM EST Sinus tachycardia Otherwise normal ECG When compared with ECG of 27-Jan-2025 05:57, (unconfirmed) Vent. rate has increased by 58 bpm [facility] ECG ORDERABLES Final Result Performing Organization Address [facility] de Phone Number [facility] * ECG 12-LEAD (01/27/2025 5:57 AM EST) [facility] Ventricular Rate EKG/MIN 71 BPM [facility] Atrial Rate 71 BPM [facility] PA Interval 164 ms [facility] QRS Duration 78 ms [facility] QT Interval 404 ms [facility] QTC Interval 439 ms [facility] P [place] 44 degrees [facility] R Wave [place] 27 degrees [facility] T Wave [place] 35 degrees [facility] 01/27/2025 5:57 AM EST Narrative [facility] - 01/29/2025 11:31 PM EST Normal sinus rhythm Normal ECG When compared with ECG of 26-Jan-2025 12:23, (unconfirmed) No significant change was found [facility] ECG ORDERABLES Final Result Performing Organization Address [facility] de Phone Number [facility] * (ABNORMAL) Toxicology Screen, Urine (01/26/2025 1:49 PM EST) [facility] Amphetamines, Urine Negative Negative 01/26/2025 3:06 PM EST [facility] Benzodiazepin e, Urine Positive(A) Negative 01/26/2025 3:06 PM EST [facility] Cocaine Metabolite, Urine Negative Negative 01/26/2025 3:06 PM EST [facility] Opiates, Urine Negative Negative 01/26/2025 3:06 PM EST [facility] Oxycodone, Urine Negative Negative 01/26/2025 3:06 PM EST [facility] Fentanyl, Urine Negative Negative 01/26/2025 3:06 PM EST [facility] Creatinine, Urine 159 20 - 300 mg/dL 01/26/2025 3:06 PM EST [facility] Urine (Urine, Voided) Non-Blood Collection / Unknown 01/26/2025 1:49 PM EST 01/26/2025 1:56 PM EST Narrative [facility] - 01/26/2025 3:06 PM EST This screening test was performed by immunoassay methodology, which may occasionally yield false-negative or false-positive results. Confirmatory testing can be requested if a definitive result is needed. Results are to be used only for medical (ie, treatment) purposes. Unconfirmed screening results must not be used for non-medical purposes (eg, employment testing). Noni Owen [facility] LAB URINE ORDERABLES F inal Result Performing Organization Address City/State/[facility] de Phone Number [address] [address] * (ABNORMAL) CBC and Differential (01/26/2025 12:43 PM EST) Pathologist [facility] WBC 4.48 4.00 - 11.00 K/uL 01/26/2025 1:23 PM EST [facility] RBC 3.92(L) 4.00 - 5.20 M/uL 01/26/2025 1:23 PM EST [facility] Hemoglobin 12.3 12.0 - 16.0 g/dL 01/26/2025 1:23 PM EST [facility] Hematocrit 37.5 36.0 - 46.0 % 01/26/2025 1:23 PM EST [facility] MCV 95.7 80.0 - 100.0 fL 01/26/2025 1:23 PM EST [facility] MCH 31.4(H) 27.0 - 31.0 pg 01/26/2025 1:23 PM EST [facility] MCHC 32.8 32.0 - 36.0 g/dL 01/26/2025 1:23 PM EST [facility] MPV 9.5 8.4 - 12.0 fL 01/26/2025 1:23 PM EST [facility] RDW-CV 12.9 11.5 - 14.5 % 01/26/2025 1:23 PM EST [facility] PLT 266 150 - 450 K/uL 01/26/2025 1:23 PM EST [facility] Neutrophils 61.1 % 01/26/2025 1:23 PM EST [facility] Lymphocytes 28.1 % 01/26/2025 1:23 PM EST [facility] Monocytes 8.7 % 01/26/2025 1:23 PM EST [facility] Eosinophils 1.3 % 01/26/2025 1:23 PM EST [facility] Basophils 0.4 % 01/26/2025 1:23 PM [facility] Imm Grans 0.4 % 01/26/2025 1:23 PM EST [facility] NRBC 0.0 <=0.0 /100 WBCs 01/26/2025 1:23 PM [facility] Absolute Neutrophils 2.73 1.92 - 7.60 K/uL 01/26/2025 1:23 PM [facility] Absolute Lymphocytes 1.26 0.72 - 4.10 K/uL 01/26/2025 1:23 PM EST [facility] Absolute Monocytes 0.39 0.16 - 1.10 K/uL 01/26/2025 1:23 PM EST [facility] Absolute Eosinophils 0.06 0.00 - 0.50 K/uL 01/26/2025 1:23 PM EST [facility] Absolute Basophils 0.02 0.00 - 0.15 K/uL 01/26/2025 1:23 PM EST [facility] Absolute Imm Grans 0.02 0.00 - 0.09 K/uL 01/26/2025 1:23 PM EST [facility] Absolute NRBC 0.00 <=0.00 K cells/uL 01/26/2025 1:23 PM EST [facility] Absolute Neutrophils 2.73 1.92 - 7.60 K/uL 01/26/2025 1:23 PM EST [facility] Comment:Automated cell count . Manual ANC may differ if performed. Diff Type Auto 01/26/2025 1:23 PM EST [facility] Blood (Blood) Venipuncture / Unknown 01/26/2025 12:43 PM EST 01/26/2025 1:03 PM EST Noni Owen [facility] LAB BLOOD BKR ORDERABL ES Final Result Performing Organization Address [facility] [place] [address] * (ABNORMAL) Levetiracetam Level (01/26/2025 12:43 PM EST) Levetiracetam 51.0(H) 12.0 - 46.0 mcg/mL 01/26/2025 1:59 PM EST [facility] Blood (Blood) Venipuncture / Unknown 01/26/2025 12:43 PM EST 01/26/2025 1:02 PM EST Noni Olivia Owen [facility] LAB BLOOD BKR ORDERABL ES Final Result Performing Organization Address [facility] [place] [address] * Oxcarbazepine Level (01/26/2025 12:43 PM EST) Oxcarbazepine Metabolite (MHC), S 33 10 - 35 mcg/mL 01/28/2025 9:06 AM EST [facility] [employer] Comment: ADDITIONAL INFORMATION This test was developed and its performance characteristics determined by [facility] in a manner consistent with CLIA requirements. This test has not been cleared or approved by the U.S. Food and Drug Administration. Blood (Blood) Venipuncture / Unknown 01/26/2025 12:43 PM EST 01/26/2025 1:02 PM EST Noni Herndonjames Owen [facility] LAB BLOOD BKR ORDERABL ES Final Result Performing Organization Address [facility] de Phone Number MALONE (BEAKER) [address] [phone] * Zonisamide Level (01/26/2025 12:43 PM EST) Pathologist [facility] Zonisamide, S 23 10 - 40 mcg/mL 01/27/2025 9:18 PM EST [facility] Comment: ADDITIONAL INFORMATION This test was developed and its performance characteristics determined by [facility] in a manner consistent with CLIA requirements. This test has not been cleared or approved by the U.S. Food and Drug Administration. Blood (Blood) Venipuncture / Unknown 01/26/2025 12:43 PM EST 01/26/2025 1:02 PM EST Noni Olivia Owen [facility] LAB BLOOD BKR ORDERABL ES Final Result Performing Organization Address [facility] de Phone Number MALONE (BEAKER) [address] [phone] * (ABNORMAL) Lacosamide Level (01/26/2025 12:43 PM EST) Lacosamide, S 0.9(L) 1.0 - 10.0 mcg/mL 01/28/2025 9:53 AM EST [facility] Comment: ADDITIONAL INFORMATION This test was developed and its performance characteristics determined by [facility] in a manner consistent with CLIA requirements. This test has not been cleared or approved by the U.S. Food and Drug Administration. Blood (Blood) Venipuncture / Unknown 01/26/2025 12:43 PM EST 01/26/2025 1:02 PM EST [facility] BKR ORDERABL ES Final Result FAISAL DE JESUS) [facility] [address] [phone] * Phosphorus (01/26/2025 12:43 PM EST) Phosphorus 2.7 2.5 - 4.5 mg/dL 01/26/2025 1:41 PM EST [facility] [employer] Blood (Blood) Venipuncture / Unknown 01/26/2025 12:43 PM EST 01/26/2025 1:03 PM EST [facility] LAB BLOOD BKR ORDERABL ES Final Result Performing Organization Address [facility] Co de Phone Number [facility] [address] [place] [phone] * Magnesium (01/26/2025 12:43 PM EST) Magnesium 2.0 1.7 - 2.6 mg/dL 01/26/2025 1:41 PM EST [facility] [employer] Blood (Blood) Venipuncture / Unknown 01/26/2025 12:43 PM EST 01/26/2025 1:03 PM EST [facility] LAB BLOOD BKR ORDERABL ES Final Result Performing Organization Address [facility] Co de Phone Number [facility] [employer] [address] [place] [phone] * (ABNORMAL) Comprehensive Metabolic Panel (CMP) (01/26/2025 12:43 PM EST) Sodium 140 136 - 145 mmol/L 01/26/2025 1:41 PM [facility] Potassium 4.3 3.4 - 5.1 mmol/L 01/26/2025 1:41 PM [facility] Chloride 108(H) 98 - 107 mmol/L 01/26/2025 1:41 PM [facility] CO2 23 20 - 31 mmol/L 01/26/2025 1:41 PM [facility] Anion Gap 9 3 - 17 mmol/L 01/26/2025 1:41 PM [facility] BUN 8 6 - 23 mg/dL 01/26/2025 1:41 PM [facility] Creatinine 0.76 0.50 - 1.00 mg/dL 01/26/2025 1:41 PM [facility] eGFR 105 >59 mL/min/1. 73m2 01/26/2025 1:41 PM [facility] Comment:Estimated glomerular filtration rate calculated using the CKD-EPI refit equation. Glucose 82 70 - 99 mg/dL 01/26/2025 1:41 PM [facility] Calcium 9.1 8.5 - 10.5 mg/dL 01/26/2025 1:41 PM [facility] AST 16 10 - 50 U/L 01/26/2025 1:41 PM [facility] ALT 21 10 - 50 U/L 01/26/2025 1:41 PM [facility] Alkaline Phosphatase 75 40 - 130 U/L 01/26/2025 1:41 PM [facility] Bilirubin, Total 0.2 0.0 - 1.2 mg/dL 01/26/2025 1:41 PM [facility] Comment:Total Bilirubin incr easing at a rate >5 mg/dl/day or Total Bilirubin exceeding 12.9 mg/dl (full term infants) or 15 mg/dl ( infants) may suggest pathologic jaundice in a . Total Protein 7.1 6.4 - 8.3 g/dL 01/26/2025 1:41 PM [facility] Albumin 4.1 3.5 - 5.2 g/dL 01/26/2025 1:41 PM [facility] Globulin 3.0 1.9 - 4.1 g/dL 01/26/2025 1:41 PM EST [facility] Blood (Blood) Venipuncture / Unknown 01/26/2025 12:43 PM EST 01/26/2025 1:03 PM EST Noni Baker [facility] LAB BLOOD BKR ORDERABL ES Final Result Performing Organization Address City/[facility] Co de Phone Number [facility] [address] [place] [address] * ECG 12-LEAD (01/26/2025 12:23 PM EST) Systolic Blood Pressure 136 mmHg [facility] Diastolic Blood Pressure 64 mmHg [facility] Ventricular Rate EKG/MIN 71 BPM [facility] Atrial Rate 71 BPM [facility] PA Interval 166 ms [facility] QRS Duration 78 ms [facility] QT Interval 406 ms [facility] QTC Interval 441 ms [facility] P [place] 56 degrees [facility] R Wave [place] 46 degrees [facility] T Wave [place] 37 degrees [facility] 01/26/2025 12:2 3 PM EST Narrative [facility] - 01/29/2025 9:24 AM EST Normal sinus rhythm Normal ECG No previous ECGs available Electronically signed by NOT CONFIRMED BY, CARDIOLOGY ([id number]), editor house organ Jose J Castillo ([id number]) on 01/29/2025 9:24:25 AM Provider [employer] ECG ORDERABLES Final Result Performing Organization Address [facility] Co de Phone Number [facility] documented in this encounter Visit Diagnoses Diagnosis Refractory epilepsy- Primary Convulsions, unspecified convulsion type- Primary documented in this encounter Admitting Diagnoses Diagnosis Refractory epilepsy documented in this encounter Administered Medications Inactive Administered Medications - up to 3 most recent administrations Medication Order MAR Action Action Date Dose Rate Site acetaminophen (TYLENOL) tablet 325-650 mg 325-650 mg, Oral, Every 6 hours PRN, mild pain or 1-3 (on a general 0-10 scale), Starting on 01/26/25 at 1029 bisacodyl (DULCOLAX) EC tablet 5 mg 5 mg, Oral, Daily as needed, moderate constipation, Starting on Sun01/29/25 at 1944, For 1 dose, Do NOT crush or chew. Given 01/29/2025 8:05 PM EST 5 mg axqymrurpzSOCMF-odvravuhx-lzzy-mag -simethicone (MAGIC MOUTHWASH-BLM) oral/mucosal suspension 10 mL 10 mL, Swish & Spit, 4 times daily PRN, mouth sores, irritation, Starting on Sun01/28/25 at 1524, Shake Well Given 01/29/2025 10:15 AM EST 10 mL Given 01/28/2025 4:44 PM EST 10 mL docusate sodium (COLACE) capsule 100 mg 100 mg, Oral, 2 times daily, First dose on Sun01/29/25 at 2100 Given 01/30/2025 9:05 AM EST 100 mg Given 01/29/2025 8:06 PM EST 100 mg folic acid (FOLVITE) tablet 1,000 mcg 1,000 mcg, Oral, Every morning, First dose on Sun01/27/25 at 0600 Given 01/30/2025 5:13 AM EST 1,000 mcg Given 01/29/2025 5:00 AM EST 1,000 mcg Given 01/28/2025 6:08 AM EST 1,000 mcg lacosamide (VIMPAT) injection 200 mg 200 mg, Intravenous, Once as needed, other (free text field), for GTC >5min, Starting on Sun01/28/25 at 0907, For 1 dose, Please contact [facility] AND Epilepsy Fellow [id number] prior to administration Administer undiluted doses less than or equal to 2 g over 2 to 5 minutes and administer undiluted doses less than or equal to 4.5 g over 5 minutes Given 01/28/2025 3:20 PM EST 200 mg lacosamide (VIMPAT) injection 200 mg 200 mg, Intravenous, Once as needed, other (free text field), for GTC >5min, Starting on Sun01/28/25 at 1524, For 1 dose, Please contact [facility] AND Epilepsy Fellow [id number] prior to administration Administer undiluted doses less than or equal to 2 g over 2 to 5 minutes and administer undiluted doses less than or equal to 4.5 g over 5 minutes lacosamide (VIMPAT) tablet 100 mg 100 mg, Oral, 2 times daily, First dose on Sun01/28/25 at 2100 Given 01/30/2025 9:05 AM EST 100 mg Given 01/29/2025 8:05 PM EST 100 mg Given 01/29/2025 9:55 AM EST 100 mg lacosamide (VIMPAT) tablet 50 mg 50 mg, Oral, Nightly, First dose on Sun01/26/25 at 2100 Given 01/26/2025 8:10 PM EST 50 mg levETIRAcetam (KEPPRA) tablet 2,000 mg 2,000 mg, Oral, 2 times daily, First dose on Sun01/26/25 at 2100 Given 01/27/2025 8:42 AM EST 2,000 mg Given 01/26/2025 8:11 PM EST 2,000 mg levETIRAcetam (KEPPRA) tablet 2,000 mg 2,000 mg, Oral, 2 times daily, First dose on Sun01/28/25 at 2100 Given 01/30/2025 9:05 AM EST 2,000 mg Given 01/29/2025 8:05 PM EST 2,000 mg Given 01/29/2025 9:55 AM EST 2,000 mg levothyroxine (SYNTHROID, LEVOTHROID) tablet 112 mcg 112 mcg, Oral, Every morning, First dose on Sun01/27/25 at 0600, Administer on an empty stomach at least 30 minutes before food. Hold enteral nutrition at least 1 hour before and 2 hours after dose. Given 01/30/2025 5:13 AM EST 112 mcg Given 01/29/2025 5:00 AM EST 112 mcg Given 01/28/2025 6:08 AM EST 112 mcg LORazepam (ATIVAN) injection 1 mg 1 mg, Intravenous, Once, On Sun01/28/25 at 0645, For 1 dose Given 01/28/2025 5:59 AM EST 1 mg LORazepam (ATIVAN) injection 1 mg 1 mg, Intravenous, Once as needed, other (free text field), For ANY GTC, Starting on Sun01/28/25 at 0908, For 1 dose, Please contact [facility] AND Epilepsy Fellow [id number] prior to administration Given 01/28/2025 3:19 PM EST 1 mg LORazepam (ATIVAN) injection 1 mg 1 mg, Intravenous, Once as needed, other (free text field), For ANY GTC, Starting on Sun01/28/25 at 1524, For 1 dose, Please contact [facility] AND Epilepsy Fellow [id number] prior to administration Given 01/29/2025 12:21 AM EST 1 mg LORazepam (ATIVAN) injection 1 mg 1 mg, Intravenous, Once as needed, For GTC, Starting on Sun01/29/25 at 0111, For 1 dose metoclopramide HCl (REGLAN) injection 10 mg 10 mg, Intravenous, Every 6 hours PRN, other (free text field), refractory nausea and/or vomiting, Starting on Sun01/28/25 at 1240, If unable to tolerate PO. Given 01/28/2025 1:07 PM EST 10 mg metoclopramide HCl (REGLAN) tablet 10 mg 10 mg, Oral, Every 6 hours PRN, other (free text field), refractory nausea and/or vomiting, Starting on Sun01/28/25 at 1240 ondansetron (PF) (ZOFRAN) injection 2 mg 2 mg, Intravenous, Every 4 hours PRN, nausea, vomiting, Starting on Sun01/27/25 at 1047, If unable to tolerate PO. Given 01/28/2025 11:52 AM EST 2 mg Given 01/28/2025 5:44 AM EST 2 mg Given 01/28/2025 1:10 AM EST 2 mg ondansetron (ZOFRAN) tablet 4 mg 4 mg, Oral, Every 6 hours PRN, nausea, vomiting, Starting on Sun01/27/25 at 1047 OXcarbazepine (TRILEPTAL) IMMEDIATE release tablet 300 mg 300 mg, Oral, Every morning, First dose on Sun01/27/25 at 0600, For 1 dose, THIS IS A LOW RISK HAZARDOUS AGENT. Must use appropriate precautions when handling and disposing of this agent. Given 01/27/2025 5:50 AM EST 300 mg OXcarbazepine (TRILEPTAL) IMMEDIATE release tablet 300 mg 300 mg, Oral, Daily, First dose on Sun01/29/25 at 0900, THIS IS A LOW RISK HAZARDOUS AGENT. Must use appropriate precautions when handling and disposing of this agent. Given 01/30/2025 9:05 AM EST 300 mg Given 01/29/2025 9:55 AM EST 300 mg OXcarbazepine (TRILEPTAL) IMMEDIATE release tablet 600 mg 600 mg, Oral, Every evening, First dose on Sun01/26/25 at 2100, For 1 dose, THIS IS A LOW RISK HAZARDOUS AGENT. Must use appropriate precautions when handling and disposing of this agent. Given 01/26/2025 8:10 PM EST 600 mg OXcarbazepine (TRILEPTAL) IMMEDIATE release tablet 600 mg 600 mg, Oral, Nightly, First dose on Sun01/29/25 at 2100, THIS IS A LOW RISK HAZARDOUS AGENT. Must use appropriate precautions when handling and disposing of this agent. Given 01/29/2025 8:05 PM EST 600 mg polyethylene glycol packet 17 g, Oral, Daily as needed, mild constipation, Starting on Sun01/26/25 at 1029, Dissolve and stir one packet of powder (17 g) in 4-8 oz of water or juice. Given 01/29/2025 9:58 AM EST 17 g Given 01/28/2025 9:03 AM EST 17 g senna (SENOKOT) tablet 2 tablet 2 tablet, Oral, Nightly PRN, mild constipation, Starting on [place] 01/29/25 at 1618 Given 01/29/2025 8:06 PM EST 2 tablets sodium chloride (NS) 0.9 % syringe flush 3 mL 3 mL, Intravenous, As needed, line care, Starting on Sun01/26/25 at 1004, Per Institutional IV Line Care Policy. traZODone (DESYREL) tablet 25 mg 25 mg, Oral, Once, On Sun01/28/25 at 0345, For 1 dose Given 01/28/2025 3:05 AM EST 25 mg zonisamide (ZONEGRAN) capsule 400 mg 400 mg, Oral, Nightly, First dose on Sun01/26/25 at 2100, THIS IS A LOW RISK HAZARDOUS AGENT. Must use appropriate precautions when handling and disposing of this agent. Given 01/27/2025 8:19 PM EST 400 mg Given 01/26/2025 8:10 PM EST 400 mg zonisamide (ZONEGRAN) capsule 400 mg 400 mg, Oral, Nightly, First dose on Sun01/28/25 at 2100, THIS IS A LOW RISK HAZARDOUS AGENT. Must use appropriate precautions when handling and disposing of this agent. Given 01/29/2025 8:05 PM EST 400 mg Given 01/28/2025 8:20 PM EST 400 mg documented in this encounter Active and Recently Administered Medications Times are shown in EST. Scheduled Medication Order 01/28/2025 01/29/2025 01/30/2025 docusate sodium (COLACE) capsule 100 mg 100 mg, Oral, 2 times daily, First dose on Sun01/29/25 at 2100 2005 (Given - Provider: Kristin Wilkerson RN) 09 (Given - Provider: Aspen Fernandez RN) folic acid (FOLVITE) tablet 1,000 mcg 1,000 mcg, Oral, Every morning, First dose on Sun01/27/25 at 0600 0608 (Given - Provider: Raza Walsh RN) 0500 (Given - Provider: Kristin Wilkerson RN) 0513 (Given - Provider: Kristin Wilkerson RN) lacosamide (VIMPAT) tablet 100 mg 100 mg, Oral, 2 times daily, First dose on Sun01/28/25 at 2099 2021 (Given - Provider: Kristin Wilkerson RN) 0955 (Given - Provider: Iram Sewell RN)2004 (Given - Provider: Kristin Wilkerson RN) 09 (Given - Provider: Aspen Fernandez RN) levETIRAcetam (KEPPRA) tablet 2,000 mg 2,000 mg, Oral, 2 times daily, First dose on Sun01/28/25 at 2099 2019 (Given - Provider: Kristin Wilkerson RN) 0955 (Given - Provider: Iram Sewell, EV)2004 (Given - Provider: Kristin Wilkerson RN) 09 (Given - Provider: Aspen Fernandez RN) levothyroxine (SYNTHROID, LEVOTHROID) tablet 112 mcg 112 mcg, Oral, Every morning, First dose on Sun01/27/25 at 0600, Administer on an empty stomach at least 30 minutes before food. Hold enteral nutrition at least 1 hour before and 2 hours after dose. 0608 (Given - Provider: Raza Walsh RN) 0500 (Given - Provider: Kristin Wilkerson RN) 0513 (Given - Provider: Kristin Wilkerson RN) LORazepam (ATIVAN) injection 1 mg (COMPLETED) 1 mg, Intravenous, Once, On Sun01/28/25 at 0645, For 1 dose 0559 (Given - Provider: Raza Walsh RN) OXcarbazepine (TRILEPTAL) IMMEDIATE release tablet 300 mg 300 mg, Oral, Daily, First dose on Sun01/29/25 at 0900, THIS IS A LOW RISK HAZARDOUS AGENT. Must use appropriate precautions when handling and disposing of this agent. 09 (Given - Provider: Iram Sewell RN) 09 (Given - Provider: Aspen Fernandez RN) OXcarbazepine (TRILEPTAL) IMMEDIATE release tablet 600 mg 600 mg, Oral, Nightly, First dose on Sun01/29/25 at 2100, THIS IS A LOW RISK HAZARDOUS AGENT. Must use appropriate precautions when handling and disposing of this agent. 2004 (Given - Provider: Kristin Wilkerson RN) traZODone (DESYREL) tablet 25 mg (COMPLETED) 25 mg, Oral, Once, On Sun01/28/25 at 0345, For 1 dose 0305 (Given - Provider: Raza Walsh RN) zonisamide (ZONEGRAN) capsule 400 mg 400 mg, Oral, Nightly, First dose on Sun01/28/25 at 2100, THIS IS A LOW RISK HAZARDOUS AGENT. Must use appropriate precautions when handling and disposing of this agent. 2019 (Given - Provider: Kristin Wilkerson RN) 2004 (Given - Provider: Kristin Wilkerson RN) PRN Medication Order 01/28/2025 01/29/2025 01/30/2025 acetaminophen (TYLENOL) tablet 325-650 mg 325-650 mg, Oral, Every 6 hours PRN, mild pain or 1-3 (on a general 0-10 scale), Starting on 01/26/25 at 1029 bisacodyl (DULCOLAX) EC tablet 5 mg (COMPLETED) 5 mg, Oral, Daily as needed, moderate constipation, Starting on Sun01/29/25 at 1944, For 1 dose, Do NOT crush or chew. 2004 (Given - Provider: Kristin Wilkerson RN) nbvhsvagdpXSWQT-lzmfdgetd-p rty-xdn-vmkmcjsljqn (MAGIC MOUTHWASH-BLM) oral/mucosal suspension 10 mL 10 mL, Swish & Spit, 4 times daily PRN, mouth sores, irritation, Starting on Sun01/28/25 at 1524, Shake Well 1644 (Given - Provider: Iram Sewell RN) 1015 (Given - Provider: Iram Sewell RN) lacosamide (VIMPAT) injection 200 mg (COMPLETED) 200 mg, Intravenous, Once as needed, other (free text field), for GTC >5min, Starting on Sun01/28/25 at 0907, For 1 dose, Please contact [facility] AND Epilepsy Fellow [id number] prior to administration Administer undiluted doses less than or equal to 2 g over 2 to 5 minutes and administer undiluted doses less than or equal to 4.5 g over 5 minutes 1520 (Given - Provider: Inge Dennison RN) lacosamide (VIMPAT) injection 200 mg 200 mg, Intravenous, Once as needed, other (free text field), for GTC >5min, Starting on Sun01/28/25 at 1524, For 1 dose, Please contact [facility] Epilepsy Fellow [id number] prior to administration Administer undiluted doses less than or equal to 2 g over 2 to 5 minutes and administer undiluted doses less than or equal to 4.5 g over 5 minutes LORazepam (ATIVAN) injection 1 mg (COMPLETED) 1 mg, Intravenous, Once as needed, other (free text field), For ANY GTC, Starting on Sun01/28/25 at 0908, For 1 dose, Please contact [facility] Epilepsy Fellow [id number] prior to administration 1519 (Given - Provider: Inge Dennison RN) LORazepam (ATIVAN) injection 1 mg (COMPLETED) 1 mg, Intravenous, Once as needed, other (free text field), For ANY GTC, Starting on Sun01/28/25 at 1524, For 1 dose, Please contact [facility] AND Epilepsy Fellow [id number] prior to administration 0021 (Given - Provider: Kristin Wilkerson RN) LORazepam (ATIVAN) injection 1 mg 1 mg, Intravenous, Once as needed, For GTC, Starting on Sun01/29/25 at 0111, For 1 dose metoclopramide HCl (REGLAN) injection 10 mg(Linked Group 1) 10 mg, Intravenous, Every 6 hours PRN, other (free text field), refractory nausea and/or vomiting, Starting on Sun01/28/25 at 1240, If unable to tolerate PO. 1307 (Given - Provider: Iram Sewell RN) metoclopramide HCl (REGLAN) tablet 10 mg(Linked Group 1) 10 mg, Oral, Every 6 hours PRN, other (free text field), refractory nausea and/or vomiting, Starting on Sun01/28/25 at 1240 1307 (See Alternative - Provider: Iram Sewell, EV) ondansetron (PF) (ZOFRAN) injection 2 mg(Linked Group 2) 2 mg, Intravenous, Every 4 hours PRN, nausea, vomiting, Starting on Sun01/27/25 at 1047, If unable to tolerate PO. 0110 (Given - Provider: Raza Walsh RN)0544 (Given - Provider: Raza Walsh RN)1152 (Given - Provider: Iram Sewell RN) ondansetron (ZOFRAN) tablet 4 mg(Linked Group 2) 4 mg, Oral, Every 6 hours PRN, nausea, vomiting, Starting on Sun01/27/25 at 1047 0110 (See Alternative - Provider: Raza Walsh RN)0544 (See Alternative - Provider: Raza Walsh RN)1152 (See Alternative - Provider: Iram Sewell, EV) polyethylene glycol packet 17 g, Oral, Daily as needed, mild constipation, Starting on Sun01/26/25 at 1029, Dissolve and stir one packet of powder (17 g) in 4-8 oz of water or juice. 0903 (Given - Provider: Iram Sewell RN) 0958 (Given - Provider: Iram Sewell RN) senna (SENOKOT) tablet 2 tablet 2 tablet, Oral, Nightly PRN, mild constipation, Starting on Sun01/29/25 at 1618 2005 (Given - Provider: Kristin Wilkerson RN) sodium chloride (NS) 0.9 % syringe flush 3 mL 3 mL, Intravenous, As needed, line care, Starting on Sun01/26/25 at 1004, Per Institutional IV Line Care Policy. Linked Groups Order Group 1: metoclopramide HCl (REGLAN) tablet 10 mgJump to med 10 mg, Oral, Every 6 hours PRN, other (free text field), refractory nausea and/or vomiting, Starting on Sun01/28/25 at 1240 Or metoclopramide HCl (REGLAN) injection 10 mgJump to med 10 mg, Intravenous, Every 6 hours PRN, other (free text field), refractory nausea and/or vomiting, Starting on Sun01/28/25 at 1240, If unable to tolerate PO. Group 2: ondansetron (ZOFRAN) tablet 4 mgJump to med 4 mg, Oral, Every 6 hours PRN, nausea, vomiting, Starting on Sun01/27/25 at 1047 Or ondansetron (PF) (ZOFRAN) injection 2 mgJump to med 2 mg, Intravenous, Every 4 hours PRN, nausea, vomiting, Starting on Sun01/27/25 at 1047, If unable to tolerate PO. documented in this encounter Additional Health Concerns Assessment Noted Time PHQ-9 Depression Total Score: 0 12/10/19 5:49 PM EDT PHQ-2 Depression Total Score: 0 12/10/19 5:49 PM EDT documented as of this encounter Care Teams Deputy Director Of Finance Relationship Specialty Start Date End Date Joy Garland PA [address] [place] [id number] PCP - General Physician Instructional Coordinator 12/17/24 documented as of this encounter Additional Source Comments The information contained in this document represents components of the legal health record. It is not the complete legal health record.[facility]
--- OUTSIDE RECORDS SUMMARY | 2025-01-27 12:54 | XMS_ITS | Encounter Summary ---
Author Organization [facility] Address [address] [place] [phone] Phone Care Team Providers Care Spike Machine Operator Name Role Phone Passer, Joy RIVERA Primary Care Provider + Encounter Details Date Type Department Care Team (Late st Contact Info) Description 01/27/2025 12:54 PM EST Hospital Encounter [facility] Neurology EEG Lab [address] [place] [address] Margot Martin MD, PhD [address] [facility] [id number] [place] [address] [email or web address] Social History Tobacco Use Types Packs/Day Years [...] on file documented as of this encounter Plan of Treatment Upcoming Encounters Date Type Department Care Team (Late st Contact Info) Description 02/19/2025 9:30 AM EST Telemedicine [facility], Department of Neurology [address] [place] [address] Ria Edwards, ORDER ENTRY CLERK [address] [place] [address] [email or web address] 05/14/2025 9:30 AM EST Telemedicine [facility], Department of Neurology [address] [place] [address] Ria Edwards CNP [address] [place] [address] [email or web address] 01/05/2026 2:30 PM EDT Office Visit [facility], Department of Neurology [address] [place] [address] Celso Urban MD, PhD [address] [place] [id number] [email or web address] documented as of this encounter Visit Diagnoses Not on filedocumented in this encounter Additional Health Concerns Assessment Noted Time PHQ-9 Depression Total Score: 0 12/10/19 5:49 PM EDT PHQ-2 Depression Total Score: 0 12/10/19 5:49 PM EDT documented as of this encounter Care Teams Spike Machine Operator Relationship Specialty Start Date End Date Joy Garland PA [address] [place] [phone] PCP - General Physician Type Soldering Machine Tender 12/17/24 documented as of this encounter Additional Source Comments The information contained in this document represents components of the legal health record. It is not the complete legal health record.[facility]
--- OUTSIDE RECORDS SUMMARY | 2025-01-28 12:56 | XMS_ITS | Encounter Summary ---
Author Organization [facility] Address [address] [place] [phone] Phone Care Team Providers Care Table Hand Name Role Phone Passer, Joy RIVERA Primary Care Provider + Encounter Details Date Type Department Care Team (Late st Contact Info) Description 01/28/2025 12:56 PM EST Hospital Encounter [facility] Neurology EEG Lab [address] [place] [address] Margot Martin MD, PhD [address] [facility] [id number] [place] [address] [email or web address] Social History Tobacco Use Types Packs/Day Years [...] 9:30 AM EST Telemedicine [facility], Department of Neurology [address] [place] [address] Ria Edwards, LIQUID NATURAL GAS PLANT OPERATOR [address] [place] [address] [email or web address] 05/14/2025 9:30 AM EST Telemedicine [facility], Department of Neurology [address] [place] [address] Ria Edwards CNP [address] [place] [address] [email or web address] 01/05/2026 2:30 PM EDT Office Visit [facility], Department of Neurology [address] [place] [address] Celso Urban MD, PhD [address] [place] [id number] [email or web address] documented as of this encounter Visit Diagnoses Not on filedocumented in this encounter Additional Health Concerns Assessment Noted Time PHQ-9 Depression Total Score: 0 12/10/19 5:49 PM EDT PHQ-2 Depression Total Score: 0 12/10/19 5:49 PM EDT documented as of this encounter Care Teams Table Hand Relationship Specialty Start Date End Date Joy Garland PA [address] [place] [phone] PCP - General Physician Horticultural Nursery Assistant 12/17/24 documented as of this encounter Additional Source Comments The information contained in this document represents components of the legal health record. It is not the complete legal health record.[facility]
--- OUTSIDE RECORDS SUMMARY | 2025-01-29 12:59 | XMS_ITS | Encounter Summary ---
Author Organization [facility] Address [address] [place] [phone] Phone Care Team Providers Care Peer Counselor Name Role Phone Passer, Joy RIVERA Primary Care Provider + Encounter Details Date Type Department Care Team (Late st Contact Info) Description 01/29/2025 12:59 PM EST Hospital Encounter [facility] Neurology EEG Lab [address] [place] [address] Margot Martin MD, PhD [address] [facility] [address] [place] [address] [email or web address] Social History Tobacco Use Types Packs/Day [...] 9:30 AM EST Telemedicine [facility], Department of Neurology [address] [place] [address] Ria Edwards, SLEEPING ROOM CLEANER [address] [place] [address] [email or web address] 05/14/2025 9:30 AM EST Telemedicine [facility], Department of Neurology [address] [place] [address] Ria Edwards CNP [address] [place] [address] [email or web address] 01/05/2026 2:30 PM EDT Office Visit [facility], Department of Neurology [address] [place] [address] Celso Urban MD, PhD [address] [place] [id number] [email or web address] documented as of this encounter Visit Diagnoses Not on filedocumented in this encounter Additional Health Concerns Assessment Noted Time PHQ-9 Depression Total Score: 0 12/10/19 5:49 PM EDT PHQ-2 Depression Total Score: 0 12/10/19 5:49 PM EDT documented as of this encounter Care Teams Peer Counselor Relationship Specialty Start Date End Date Joy Garland PA [address] [place] [id number] PCP - General Physician Supervisor [employer]ar[employer] 12/17/24 documented as of this encounter Additional Source Comments The information contained in this document represents components of the legal health record. It is not the complete legal health record.[facility]
[2025-02-02 10:48] VITALS: BP 122/76; PULSE 95; TEMP 37; O2SAT 99; BMI 37.4
--- NOTE | 2025-02-02 10:48 | A.OFFPC_ITS ---
Vital Signs 02/02/25 10:48 Height 5 ft 4 in Weight 218 lb BMI 37.4 BP 122/76 Blood Pressure Location Rt brachial Position Sitting Pulse 95 Pulse Source Pulse Oximeter Temp 98.6 F Temp Source Temporal Artery Scan Pulse Oximetry (%) 99 Oxygen Delivery Method Room Air Intake Visit Reasons: Right leg calve pain Access Tech Required: No Accompanied by: Mother Allergies No Known Allergies (No Known Allergies*) Allergy (Verified 02/02/25 10:49) Medication List - Last Reconciled 02/02/25 by NICOLE Bedolla folic acid 1 mg PO DAILY lacosamide 50 mg PO BID levetiracetam 1,000 mg PO BID levothyroxine 112 mcg PO DAILY meloxicam 15 mg PO DAILY oxcarbazepine half pill in the morning and 2 tabs at night orally; half pill in the morning and 2 tabs at night orally; tizanidine 4 mg PO BID PRN zonisamide 100 mg PO .4 times daily Tobacco use date assessed: 02/02/25 Dental Screening Dental Screen Date: 02/02/25 Did you have a dental visit in the last 12 months?: Yes Did you have a dental problem in the last 6 months where you did not have access to dental care?: No HPI HPI Comments History of Present Illness Details History of Present Illness 35 year old female with seizure disorder , Hypothyroidism, developmentally delayed and obesity here with her mother presenting for evaluation of right posterior calf pain. The pain began on Sunday, the day after the patient was discharged from the hospital, and is severe enough to impair walking. There was no known strenuous activity, and the patient has not taken any medication for the pain. The patient was hospitalized last week in [place] for long-term monitoring for a seizure disorder. During the hospitalization, the patient experienced three seizures, and it is suspected that a muscle may have been pulled during these ev ents, as the patient twists during seizures. The results from the long-term monitoring are not yet available. Medical History: - Seizure disorder - Hospitalization: The patient was admit [facility] last week for long-term monitoring for seizures and had three seizures during the stay. Medications: - The patient has not taken any medicati ons for the current pain. Patient was informed and verbally consented to the use of an ambient scribe for clinic note documentation during this visit. FORMERLY [facility], [facility] Medical History Intellectual delay Obesity (BMI 35.0-39.9 without comorbidity) Hypothyroidism Seizure disorder Family History Mother No problems noted. Father No problems noted. Social History Housing: House Patient Tobacco Use Status: Never used Tobacco e-Cigarette/Vaping Use: Never Used service: No Current occupational status: other Cognitive needs: No Hearing needs: No Vision needs: Yes (rx glasses) Questionnaire PHQ-9 Over the last 2 weeks, how often have you been bothered by any of the following problems? 1. Little interest or pleasure in doing things: not at all 2. Feeling down, depressed, or hopeless: not at all 3. Trouble falling or staying asleep, or sleeping too much: not at all 4. Feeling tired or having little energy: not at all 5. Poor appetite or overeating: not at all 6. Feeling bad about yourself - or that you are a failure or have let yourself or your family down: not at all 7. Trouble concentrating on things, such as reading the newspaper or watching television: not at all 8. Moving or speaking so slowly that other people could have noticed. Or the opposite - being so fidgety or restless that you have been moving around a lot more than usual: not at all 9. Thoughts that you would be better off or of hurting yourself in some way: not at all Total score: 0 Depression Screening Interpretation: Negative Depression Screening Done: Yes Source: Developed by Drs. Matt Harrington, Helena Vallejo, Dwaine Ballard and colleagues, with an educational aram from [employer]. Thrive Questionnaire Date Thrive assessed: 02/02/25 I am a: Patient Within the past 12 months, did the food you bought not last and you didn't have the money to get more?: Never true Within the past 12 months, did you worry whether your food would run out before you got money to buy more?: Never true Do you have trouble paying for medicines?: No Do you have trouble getting transportation to medical appointments?: No Do you have trouble paying your heating and electricity bill?: No Do you have trouble taking care of your child, family member or friend?: No Do you have trouble with day-to-day activities such as bathing, preparing meals, shopping, managing finances, etc.?: No Are you currently unemployed and looking for a job?: No Are you interested in more education?: No THRIVE Score: 0 AUDIT C Alcohol Use Questionnaire (AUDIT-C) 1. How often do you have a drink containing alcohol?: Never 3. How often do you have six or more drinks on one occasion?: Never Total Score: 0 VINCE-7 AMB Questionnaire VINCE-7 Date VINCE - 7 assessed: 02/02/25 Feeling nervous, anxious, or on edge: 0 = Not at all Not being able to stop or control worryin = Not at all Worrying too much about different things: 0 = Not at all Trouble relaxin = Not at all Being so restless that it is hard to sit still: 0 = Not at all Becoming easily annoyed or irritable: 0 = Not at all Feeling afraid as if something awful might happen: 0 = Not at all Total VINCE-7 score (0-4 normal; 5-9 mild; 10-14 moderate; 15-21 severe): 0 Source: Developed by Drs. Matt Harrington, Helena Vallejo, Dwaine Ballard and colleagues, with an educational aram from [employer]. Review of Systems Narrative Review of Systems - Musculoskeletal: Reports severe posterior leg pain that impairs ability to walk. - Neurological: History of seizures; had three seizures last week. - Cardiovascular: Denies leg swelling. Physical exam (Primary Care) Vital Signs: Last Vital Signs Temp 98.6 F 02/02/25 10:48 Pulse 95 02/02/25 10:48 BP 122/76 02/02/25 10:48 Pulse Ox 99 02/02/25 10:48 Oxygen Delivery Method Room Air 02/02/25 10:48 BMI result Body Mass Index 37.4 GENERAL Well developed, obese, in no apparent distress RESPIRATORY Normal I:E, Clear to auscultation CARDIOVASCULAR Regular, rate and rhythm, No murmurs or rubs MUSCULOSKELETAL - Lower Extremities: No edema or erythema is noted, Jerel's sign is negative Asymmetry of the feet is observed, which is reported to be the patient's baseline. Tenderness to palpation over the posterior calf muscle. NEUROLOGICAL Gait slow Tobacco/Smoking Status: Tobacco use Status Tobacco use date assessed 02/02/25 02/02/25 10:50 Patient Tobacco Use Status Never used Tobacco 02/02/25 10:50 e-Cigarette/Vaping Use Never Used 02/02/25 10:50 PHQ-9: PHQ-9 Score PHQ-9: Total score 0 02/02/25 11:00 Depression Screening Interpretation: Negative Thrive Assessment: Date of Thrive Assessment Date Thrive assessed 02/02/25 02/02/25 10:50 Coding Level of Care Code Established Pt Est Pt Level 3 (07710) Patient Type Established Diagnoses Seizure disorder G40.909 Acquired hypothyroidism E03.9 Hypothyroidism type: acquired Time Spent (min) 20 Comment Time spent on H&P, patient education and orders. Assessment & Plan Assessment & Plan (1) Seizure disorder: Code(s): G40.909 - Epilepsy, unspecified, not intractable, without status epilepticus Category: Medical (2) Hypothyroidism: Comment: TSH 1.39 Code(s): E03.9 - Hypothyroidism, unspecified Category: Medical Qualifiers: Hypothyroidism type: acquired Qualified Code(s): E03.9 - Hypothyroidism, unspecified Plan Plan Patient was informed and verbally consented to the use of an ambient scribe for clinic note documentation during this visit. 1. Muscle Sprain The patient's posterior leg pain is assessed to be a muscle sprain, likely related to recent seizure activity. While a blood clot was a concern, it is considered unlikely given the absence of swelling. The plan is to prescribe meloxicam once daily for pain and inflammation, and tizanidine twice daily as a muscle relaxer. Application of heat to the affected area is also recommended. If the pain worsens or swelling develops, the patient should proceed to the emergency room for a Doppler study to definitively rule out a blood clot. 2. Seizure Disorder The patient has a history of a seizure disorder and was recently hospitalized for long-term monitoring, during which three seizures occurred. The plan is to await the results from the neurologist's report on the monitoring. The patient has a scheduled follow-up in April. Discussion Notes I explained that the patient's leg pain is most likely a muscle sprain, probably sustained during the recent seizures. I noted that while a blood clot was a concern, I think it is unlikely because there is no swelling. I am prescribing meloxicam, an anti-inflammatory, and tizanidine, a muscle relaxer, to manage the symptoms. I advised applying heat to the area and provided strict return precautions, instructing an emergency room visit for a Doppler study if the pain worsens or if any swelling develops, as this would be the most efficient way to rule out a clot. I also informed them that I will keep an eye out for the neurologist's report from the recent hospitalization. Patient Instructions - Take one tablet of meloxicam once a day with food to help with pain and inflammation. - Take one tablet of tizanidine twice a day (morning and evening). - This is a muscle relaxer and may make the patient a little sleepy. - Apply heat to the sore area on the leg. - Go to the emergency room if the leg pain gets worse or if you notice any new swelling. - The pain should improve within a week to 10 days. - If it does not, please let us know. - A follow-up appointment is scheduled for April. Medications: New tizanidine 4 mg PO BID PRN 60 tabs 0RF muscle pain meloxicam with food 15 mg PO DAILY 30 tabs 0RF for calf pain
--- OUTSIDE RECORDS SUMMARY | 2025-02-02 13:30 | XMS_ITS | Encounter Summary ---
Author Organization [facility] Address [address] [place] [phone] Phone Care Team Providers Care Director Of Education Name Role Phone Passer, Joy RIVERA Primary Care Provider + Reason for Visit * Reason Comments Medication Refill Encounter Details Date Type Department Care Team (Late st Contact Info) Description 01/19/2025 Refill [facility], Department of Neurology [address] [place] [address] Celso Urban MD, PhD [address] [place] [id number] [email or web address] Medication Refill Social History Tobacco Use Types Packs/Day Years Used Date Smoking Tobacco: Never Smokeless Tobacco: Never Education Answer Date Recorded Are you interested in more education? Not on marie e 10/14/2024 Are you concerned about learning? Not on file 10/14/2024 No 10/14/2024 No 10/14/2024 Digital Access Answer Date Recorded No 10/14/2024 No 10/14/2024 Reliable internet access at home? Not on file 10/14/2024 Device with a working camera? Not on file Intimate Partner Violence Answer Date R ecorded Are you denied basic needs s uch as food, clothing, or medical care? No 12/16/2024 In the past 12 months have y ou been in a relationship with a person who hurts, threatens, or tries to control you? No 12/16/2024 Are you denied basic needs s uch as food, clothing, or medical care? No 12/16/2024 In the past 12 months have y ou been in a relationship with a person who hurts, threatens, or tries to control you? No 12/16/2024 Comments Unknown Sex and Gender Information Value Date Recorded Sex Assigned at Female 12/16/2024 8:49 PM EDT Legal Sex Female 10:05 AM EDT Gender Identity Female 12/16/2024 8:49 PM EDT Sexual Orientation Not on file documented as of this encounter Plan of Treatment Upcoming Encounters Date Type Department Care Team (Late st Contact Info) Description 02/19/2025 9:30 AM EST Telemedicine [facility], Department of Neurology [address] [place] [address] Ria Edwards CNP [address] [place] [id number] [email or web address] 05/14/2025 9:30 AM EST Telemedicine [facility], Department of Neurology [address] [place] [address] Ria Edwards CNP [address] [place] [id number] [email or web address] 01/05/2026 2:30 PM EDT Office Visit [facility], Department of Neurology [address] [place] [address] Celso Urban MD, PhD [address] [place] [address] [email or web address] documented as of this encounter Visit Diagnoses Diagnosis Localization-related symptomatic epilepsy and epileptic syndromes with complex partial seizures, intractable, without status epilepticus documented in this encounter Additional Health Concerns Assessment Noted Time PHQ-9 Depression Total Score: 0 12/10/19 5:49 PM EDT PHQ-2 Depression Total Score: 0 12/10/19 5:49 PM EDT documented as of this encounter Care Teams Director Of Education Relationship Specialty Start Date End Date Joy Garland PA [address] [place] [id number] PCP - General Physician Pipe Insulator 12/17/24 documented as of this encounter Additional Source Comments The information contained in this document represents components of the legal health record. It is not the complete legal health record.[facility]
--- OUTSIDE RECORDS SUMMARY | 2025-02-02 13:31 | XMS_ITS | Clinical Summary ---
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 11/06/19 25 Active levothyroxine (SYNTHROID, LEVOTHROID) 112 MCG tablet TOME 1 TABLETA POR BOCA TODOS [place] PAUL[place] EN LA MANANA 09/17/19 25 Active levETIRAcetam (KEPPRA) 1000 MG IMMEDIATE release tabletIndicati ons:Localizati on-related symptomatic epilepsy and epileptic syndromes with complex partial seizures, intractable, without status epilepticus Take 2 tablets (2,000 mg total) by mouth 2 (two) times a day. 120 tablet 11 12/17/19 25 Active zonisamide (ZONEGRAN) 100 MG capsuleIndicat ions:Localizat ion-related symptomatic epilepsy and epileptic syndromes with complex partial seizures, intractable, without status epilepticus Take 4 capsules (400 mg total) by mouth nightly at bedtime. 120 capsule 11 12/17/19 Active NAYZILAM 5 mg/spray (0.1 mL) [place] nasal sprayIndicatio ns:Localizatio n-related symptomatic epilepsy and epileptic syndromes with complex partial seizures, intractable, without status epilepticus USE 5 MG (1 SPRAY) ONCE A SINGLE DOSE IN 1 NOSTRIL NEEDED (TO PREVENT SEIZURE CLUSTERS) 2 each 01/21/20 Active lacosamide (VIMPAT) 100 mg Tab Take 1 tablet (100 mg total) by mouth 2 (two) times a day. 180 tablet 1 01/30/20 Active OXcarbazepine (TRILEPTAL) 300 MG IMMEDIATE release tablet Take 1 tablet (300 mg total) by mouth daily. 90 tablet 1 01/31/20 Active OXcarbazepine (TRILEPTAL) 600 MG IMMEDIATE release tablet Take 1 tablet (600 mg total) by mouth nightly at bedtime. 90 tablet 1 01/30/20 Active OXcarbazepine (TRILEPTAL) 600 MG IMMEDIATE release tabletIndicati ons:Localizati on-related symptomatic epilepsy and epileptic syndromes with complex partial seizures, intractable, without status epilepticus Take 1 tablet (600 mg total) by mouth every morning AND 2 tablets (1,200 mg total) every evening. 90 tablet 11 12/17/19 25 025 Discontinued(St op Taking at Discharge) midazolam (NAYZILAM) 5 mg/spray (0.1 mL) [place] nasal sprayIndicatio ns:Localizatio n-related symptomatic epilepsy and epileptic syndromes with complex partial seizures, intractable, without status epilepticus 1 spray by Intranasal route once as needed for seizures (to prevent seizure clusters). 2 each 12/17/19 25 025 Discontinued lacosamide (VIMPAT) 50 mg TabIndications :Localization- related symptomatic epilepsy and epileptic syndromes with complex partial seizures, intractable, without status epilepticus Take 1 tablet (50 mg total) by mouth 2 (two) times a day. 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 Hypothyroidism 12/16/2024 Increased BMI 12/16/2024 Encounters Date Type Department Care Team Description 01/29/2025 12:59 PM EST Hospital Encounter [facility] Neurology EEG Lab [address] [place] [address] Margot Martin MD, PhD 01/28/2025 12:56 PM EST Hospital Encounter [facility] Neurology EEG Lab [address] [place] [address] Margot Martin MD, PhD 01/27/2025 12:54 PM EST Hospital Encounter [facility] Neurology EEG Lab [address] [place] [address] Margot Martin MD, PhD 01/26/2025 10:00 AM EST - 01/26/2025 11:59 PM EST Hospital Encounter [facility] Neurology EEG Lab [address] [place] [address] [facility]: Home or Self Care 01/26/2025 9:55 AM EST - 01/30/2025 12:44 PM EST Hospital Encounter [facility] 5D [address] [place] [address] Margot Martin MD, PhD Discharge Disposition: Home or Self Care 01/22/2025 Refill [facility], Department of Neurology [address] [place] [address] Allyssa Cartagena PA-C Medication Refill 01/19/2025 Refill [facility], Department of Neurology [address] [place] [address] Celso Urban MD, PhD Medication Refill 01/15/2025 8:59 PM EST - 01/15/2025 11:59 PM EST Hospital Encounter [address] [address] Celso Urban MD, PhD Discharge Disposition: Home or Self Care 01/12/2025 Telephone [facility], Department of Neurology [address] [place] [address] Celso Urban MD, PhD EMU 12/29/2024 Telephone [facility], Department of Neurology [address] [place] [address] Celso Urban MD, PhD EMU 12/16/2024 2:24 PM EDT - 12/16/2024 11:59 PM EDT Hospital Encounter [facility] Phlebotomy, Bower Building [address] [place] [address] Celso Urban MD, PhD Discharge Disposition: Home or Self Care 12/16/2024 1:00 PM EDT Office Visit [facility], Department of Neurology [address] [place] [address] Celso Urban MD, PhD Localization-related symptomatic epilepsy and epileptic syndromes with complex partial seizures, intractable, without status epilepticus (Primary Dx) 12/16/2024 Procedure Pass [address] [address] from Last 3 Months Social History Tobacco Use Types Packs/Day Years Used Date Smoking Tobacco: Never Smokeless Tobacco: Never Tobacco Cessation:Counseling Given: Not Answered Education Answer Date Recorded Are you interested [...] PM EDT Sexual Orientation Not on file Last Filed Vital Signs Vital Sign Reading [...] Mass Index 38.37 01/26/2025 10:35 AM EST Plan of Treatment Upcoming Encounters Date Type Department Care Team (Late st Contact Info) Description 02/19/2025 9:30 AM EST [facility]medicine [facility], Department of Neurology [address] [place] [address] Ria Edwards CNP [address] [place] [address] [email or web address] 05/14/2025 9:30 AM EST Telemedicine [facility], Department of Neurology [address] [place] [address] Ria Edwards CNP [address] [place] [address] [email or web address] 01/05/2026 2:30 PM EDT Office Visit [facility], Department of Neurology [address] [place] [address] Celso Urban MD, PhD [address] [place] [address] [email or web address] Health Maintenance Due Date Last Done Comments Adult Td,Tdap Booster 1990 TSH LEVEL 1990 HEPATITIS C SCREENING 01/08/2008 HIV ONE-TIME SCREENING (18-6 5 YEARS) 01/08/2008 PAP SMEAR 2011 INFLUENZA VACCINE (#1) 2024 COVID-19 VACCINE ( - 2024-2 6 season) 2024 DEPRESSION SCREENING 12/15/2025 12/15/2024, 12/09/2024 SCREENING FOR DIABETES 01/27/2028 01/26/2025 SMOKING STATUS SCREENING (On ce After 26 Yrs) Completed 12/16/2024 HEPATITIS A VACCINES Aged Out No long er eligible based on patient's age to complete this topic HIB VACCINES Aged Out No longer eligi ble based on patient's age to complete this topic MENINGOCOCCAL VACCINES (ACWY) Aged Out No longer eligible based on patient's age to complete this topic MENINGOCOCCAL VACCINES (B) Aged Out N o longer eligible based on patient's age to complete this topic PNEUMOCOCCAL VACCINES (0-49 years) Aged Out No longer eligible b ased on patient's age to complete this topic Medical Devices Not on file Procedures Procedure Name Priority Date/Time Associated Diagnosis Comments EEG Routine 01/30/2025 10:04 AM EST Procedure Note - Sandra Feliciano MD - 01/30/2025 10:04 AM ESTThis note is in progress. [facility] Epilepsy Monitoring Unit Report [facility] Epilepsy Unit Patient's name: Tawana Machado Patient's MRN??: [id number] ?Patient : ??1990 Patient gender: ??female Dates [...] anteriortemporal electrodes. Data are recorded on an [employer] machine. Technologistsmonitor the recording for clinical events with the help of a computerprogram. DETAILS: Day 1 (01/26 - 01/27) Start time: 11:56am End time: 7:00am Medications: LEV 2g BID, OXC 600 mg BID, ZNS 400 mg qhs. LCM 50 mg BID The waking background shows good organization, consisting of [id number] uV, 10 Hz posterior alpha activity, less [...] movements and bilateral shifting theta/delta activity. Stage [id number] is characterized by further slowing, vertex waves and sleepspindles. Slow wave and REM sleep are present. Single lead EKG shows an apparent sinus rhythm of approximately 72 beatsper minute. There is no clinical event reported during this epoch. Day 2 (01/27 - 01/28) Start time: 7:00am End time: 7:00am Medications: LEV 1g AM/STOP, OXC 300 mg AM/STOP, LCM 50 mg AM/STOP, [id number] mg qhs The waking and sleeping background [...] SCREEN, URINE Routine 01/26/2025 1:49 PM EST CBC AND DIFFERENTIAL Routine 01/26/2025 12:43 PM EST LEVETIRACETAM (KEPPRA) LEVEL Timed 01/26/2025 12:43 PM EST OXCARBAZEPINE LEVEL Routine 01/26/2025 12:43 PM EST ZONISAMIDE LEVEL Routine 01/26/2025 12:43 PM EST LACOSAMIDE LEVEL Routine 01/26/2025 12:43 PM EST CBC AND DIFFERENTIAL Routine 01/26/2025 12:43 PM EST PHOSPHORUS Routine 01/26/2025 12:43 PM EST MAGNESIUM Routine 01/26/2025 12:43 PM EST COMPREHENSIVE METABOLIC PANEL (CMP) Routine 01/26/2025 12:43 PM EST ECG 12-LEAD Routine 01/26/2025 12:23 PM EST MRI BRAIN (SEIZURE) WITHOUT CONTRAST Routine 01/15/2025 10:33 PM EST Localization-re lated symptomatic epilepsy and epileptic syndromes with complex partial seizures, intractable, without status epilepticus LEVETIRACETAM (KEPPRA) LEVEL Routine 12/16/2024 2:40 PM EDT Localization-re lated symptomatic epilepsy and epileptic syndromes with complex partial seizures, intractable, without status epilepticus LACOSAMIDE LEVEL Routine 12/16/2024 2:40 PM EDT Localization-re lated symptomatic epilepsy and epileptic syndromes with complex partial seizures, intractable, without status epilepticus TRILEPTAL (OXCARBAZEPINE) LEVEL Routine 12/16/2024 2:40 PM EDT Localization-re lated symptomatic epilepsy and epileptic syndromes with complex partial seizures, intractable, without status epilepticus ZONISAMIDE LEVEL Routine 12/16/2024 2:40 PM EDT Localization-re lated symptomatic epilepsy and epileptic syndromes with complex partial seizures, intractable, without status epilepticus CBC Routine 12/16/2024 2:40 PM EDT Localization-re lated symptomatic epilepsy and epileptic syndromes with complex partial seizures, intractable, without status epilepticus COMPREHENSIVE METABOLIC PANEL (CMP) Routine 12/16/2024 2:40 PM EDT Localization-re lated symptomatic epilepsy and epileptic syndromes with complex partial seizures, intractable, without status epilepticus from Last 3 Months Results * ECG 12-LEAD (01/29/2025 5:54 AM EST) Only the most recent of4 resultswithin the time period is included. Systolic Blood Pressure 107 mmHg [facility] Diastolic Blood Pressure 56 mmHg [facility] Ventricular Rate EKG/MIN 83 BPM [facility] Atrial Rate 83 BPM [facility] MA Interval 166 ms [facility] QRS Duration 82 ms [facility] QT Interval 374 ms [facility] QTC Interval 439 ms [facility] P [place] 44 degrees [facility] R Wave [place] 35 degrees [facility] T Wave [place] 38 degrees [facility] 01/29/2025 5:54 AM EST Narrative [facility] - 01/29/2025 4:34 PM EST Normal sinus rhythm Normal ECG When compared with ECG of 28-Jan-2025 05:30, Vent. rate has decreased by 46 bpm T wave inversion now evident in Anterior leads Noni Owen [facility] ECG ORDERABLES Final Result [facility] * (ABNORMAL) Toxicology Screen, Urine (01/26/2025 1:49 PM EST) Pathologist [facility] Amphetamines, Urine Negative Negative 01/26/2025 3:06 PM EST [facility] Benzodiazepin e, Urine Positive(A) Negative 01/26/2025 3:06 PM EST [facility] Cocaine Metabolite, Urine Negative Negative 01/26/2025 3:06 PM EST [facility] Opiates, Urine Negative Negative 01/26/2025 3:06 PM EST [facility] Oxycodone, Urine Negative Negative 01/26/2025 3:06 PM EST [facility] Fentanyl, Urine Negative Negative 01/26/2025 3:[address] [facility] Creatinine, Urine 159 20 - 300 mg/dL 01/26/2025 3:06 PM EST [facility] Urine (Urine, Voided) Non-Blood Collection / Unknown 01/26/2025 1:49 PM EST 01/26/2025 1:[address] [facility] - 01/26/2025 3:06 PM EST This screening test was performed by immunoassay methodology, which may occasionally yield false-negative or false-positive results. Confirmatory testing can be requested if a definitive result is needed. Results are to be used only for medical (ie, treatment) purposes. Unconfirmed screening results must not be used for non-medical purposes (eg, employment testing). Noni Owen [facility] URINE ORDERABLES F inal Result Performing Organization Address City/State/[facility] Co de Phone Number [facility] [address] [place] [phone] * (ABNORMAL) Comprehensive Metabolic Panel (CMP) (01/26/2025 12:43 PM EST) Only the most recent of2 resultswithin the time period is included. Sodium 140 136 - 145 mmol/L 01/26/2025 1:41 PM EST [facility] Potassium 4.3 3.4 - 5.1 mmol/L 01/26/2025 1:[address] [facility] Chloride 108(H) 98 - 107 mmol/L 01/26/2025 1:41 PM EST [facility] CO2 23 20 - 31 mmol/L 01/26/2025 1:41 PM EST [facility] Anion Gap 9 3 - 17 mmol/L 01/26/2025 1:41 PM EST [facility] BUN 8 6 - 23 mg/dL 01/26/2025 1:41 PM EST [facility] Creatinine 0.76 0.50 - 1.00 mg/dL 01/26/2025 1:41 PM EST [facility] eGFR 105 >59 mL/min/1. 73m2 01/26/2025 1:41 PM EST [facility] Comment:Estimated glomerular filtration rate calculated using the CKD-EPI refit equation. Glucose 82 70 - 99 mg/dL 01/26/2025 1:41 PM EST [facility] Calcium 9.1 8.5 - 10.5 mg/dL 01/26/2025 1:41 PM EST [facility] AST 16 10 - 50 U/L 01/26/2025 1:41 PM EST [facility] ALT 21 10 - 50 U/L 01/26/2025 1:41 PM EST [facility] Alkaline Phosphatase 75 40 - 130 U/L 01/26/2025 1:41 PM EST [facility] Bilirubin, Total 0.2 0.0 - 1.2 mg/dL 01/26/2025 1:41 PM EST [facility] Comment:Total Bilirubin incr easing at a rate >5 mg/dl/day or Total Bilirubin exceeding 12.9 mg/dl (full term infants) or 15 mg/dl ( infants) may suggest pathologic jaundice in a . Total Protein 7.1 6.4 - 8.3 g/dL 01/26/2025 1:41 PM EST [facility] Albumin 4.1 3.5 - 5.2 g/dL 01/26/2025 1:41 PM EST [facility] Globulin 3.0 1.9 - 4.1 g/dL 01/26/2025 1:41 PM EST [facility] Blood (Blood) Venipuncture / Unknown 01/26/2025 12:43 PM EST 01/26/2025 1:03 PM EST us Noni Owen [facility] BLOOD BKR ORDERABL ES Final Result [facility] [address] [place] [address] * Zonisamide Level (01/26/2025 12:43 PM EST) Zonisamide, S 23 10 - 40 mcg/mL 01/27/2025 9:18 PM EST [facility] Comment: ADDITIONAL INFORMATION This test was developed and its performance characteristics determined by [facility] in a manner consistent with CLIA requirements. This test has not been cleared or approved by the U.S. Food and Drug Administration. Blood (Blood) Venipuncture / Unknown 01/26/2025 12:43 PM EST 01/26/2025 1:02 PM EST Noni Owen [facility] LAB BLOOD BKR ORDERABL ES Final Result FAISAL DE JESUS) [facility] [address] [place], [place] [address] [phone] * (ABNORMAL) CBC and Differential (01/26/2025 12:43 PM EST) WBC 4.48 4.00 - 11.00 K/uL 01/26/2025 1:23 PM [facility] RBC 3.92(L) 4.00 - 5.20 M/uL 01/26/2025 1:23 PM [facility] Hemoglobin 12.3 12.0 - 16.0 g/dL 01/26/2025 1:23 PM [facility] Hematocrit 37.5 36.0 - 46.0 % 01/26/2025 1:23 PM [facility] MCV 95.7 80.0 - 100.0 fL 01/26/2025 1:23 PM [facility] MCH 31.4(H) 27.0 - 31.0 pg 01/26/2025 1:23 PM [facility] MCHC 32.8 32.0 - 36.0 g/dL 01/26/2025 1:23 PM [facility] MPV 9.5 8.4 - 12.0 fL 01/26/2025 1:23 PM [facility] RDW-CV 12.9 11.5 - 14.5 % 01/26/2025 1:23 PM [facility] PLT 266 150 - 450 K/uL 01/26/2025 1:23 PM [facility] Neutrophils 61.1 % 01/26/2025 1:23 PM EST [facility] Lymphocytes 28.1 % 01/26/2025 1:23 PM EST [facility] Monocytes 8.7 % 01/26/2025 1:23 PM EST [facility] Eosinophils 1.3 % 01/26/2025 1:23 PM EST [facility] Basophils 0.4 % 01/26/2025 1:23 PM EST [facility] Imm Grans 0.4 % 01/26/2025 1:[address] [facility] NRBC 0.0 <=0.0 /100 WBCs 01/26/2025 1:[address] [facility] Absolute Neutrophils 2.73 1.92 - 7.60 K/uL 01/26/2025 1:23 PM EST [facility] Absolute Lymphocytes 1.26 0.72 - 4.10 K/uL 01/26/2025 1:[address] [facility] Absolute Monocytes 0.39 0.16 - 1.10 K/uL 01/26/2025 1:23 PM EST [facility] Absolute Eosinophils 0.06 0.00 - 0.50 K/uL 01/26/2025 1:23 PM EST [facility] Absolute Basophils 0.02 0.00 - 0.15 K/uL 01/26/2025 1:23 PM EST [facility] Absolute Imm Grans 0.02 0.00 - 0.09 K/uL 01/26/2025 1:[address] [facility] Absolute NRBC 0.00 <=0.00 K cells/uL 01/26/2025 1:23 PM EST [facility] Absolute Neutrophils 2.73 1.92 - 7.60 K/uL 01/26/2025 1:23 PM EST [facility] Comment:Automated cell count . Manual ANC may differ if performed. Diff Type Auto 01/26/2025 1:23 PM [facility] Blood (Blood) Venipuncture / Unknown 01/26/2025 12:43 PM EST 01/26/2025 1:03 PM EST Noni [facility] BLOOD BKR ORDERABL ES Final Result [facility] [address] [place] [phone] * Oxcarbazepine Level (01/26/2025 12:43 PM EST) Oxcarbazepine Metabolite (MHC), S 33 10 - 35 mcg/mL 01/28/2025 9:06 AM EST [facility] Comment: ADDITIONAL INFORMATION This test was developed and its performance characteristics determined by [facility] in a manner consistent with CLIA requirements. This test has not been cleared or approved by the U.S. Food and Drug Administration. Blood (Blood) Venipuncture / Unknown 01/26/2025 12:43 PM EST 01/26/2025 1:02 PM EST Noni Olivia Owen [facility] LAB BLOOD BKR ORDERABL ES Final Result Performing Organization Address City/[facility]/ZIP Co de Phone Number MALONE (BEAKER) [facility] [address] [phone] * (ABNORMAL) Lacosamide Level (01/26/2025 12:43 PM EST) Pathologist [facility] Lacosamide, S 0.9(L) 1.0 - 10.0 mcg/mL 01/28/2025 9:53 AM EST [facility] Comment: ADDITIONAL INFORMATION This test was developed and its performance characteristics determined by [facility] in a manner consistent with CLIA requirements. This test has not been cleared or approved by the U.S. Food and Drug Administration. Blood (Blood) Venipuncture / Unknown 01/26/2025 12:43 PM EST 01/26/2025 1:02 PM EST Noni Owen [facility] LAB BLOOD BKR ORDERABL ES Final Result MALONE (BEAKER) [facility] [address] [place], [place] [address] [phone] * (ABNORMAL) Levetiracetam Level (01/26/2025 12:43 PM EST) Only the most recent of2 resultswithin the time period is included. Levetiracetam 51.0(H) 12.0 - 46.0 mcg/mL 01/26/2025 1:59 PM EST [facility] Blood (Blood) Venipuncture / Unknown 01/26/2025 12:43 PM EST 01/26/2025 1:02 PM EST Noni Owen [facility] BLOOD BKR ORDERABL ES Final Result Performing Organization Address City/[facility]/ZIP Co de Phone Number [facility] [address] [place] [phone] * Phosphorus (01/26/2025 12:43 PM EST) Phosphorus 2.7 2.5 - 4.5 mg/dL 01/26/2025 1:41 PM EST [facility] Fieldbook Blood (Blood) Venipuncture / Unknown 01/26/2025 12:43 PM EST 01/26/2025 1:03 PM EST [facility] BKR ORDERABL ES Final Result [facility] [address] [place] [address] * Magnesium (01/26/2025 12:43 PM EST) Magnesium 2.0 1.7 - 2.6 mg/dL 01/26/2025 1:41 PM EST [facility] Blood (Blood) Venipuncture / Unknown 01/26/2025 12:43 PM EST 01/26/2025 1:03 PM EST us Noni Owen [facility] BLOOD BKR ORDERABL ES Final Result [facility] [address] [place] [address] * MRI BRAIN (SEIZURE) WITHOUT CONTRAST (01/15/2025 10:33 PM EST) Anatomical Region Laterality Modality Head Magnetic Resonan ce 01/19/2025 1:04 PM EST Impressions 01/19/2025 1:23 PM EST 1. 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 2. Hypoplastic/dysplastic corpus callosum. 3. Partially empty sella. Narrative 01/19/2025 1:23 PM EST MRI BRAIN (SEIZURE) WITHOUT CONTRAST Referring clinician's provided indication for this examination in [facility]: * Seizure, refractory; Please perform seizure 2 protocol. TECHNIQUE: Multi-sequence, multi-planar MRI of the brain was performed without intravenous contrast. COMPARISON: None FINDINGS: Brain Parenchyma: The is right hemimegalencephaly involving the right cerebral hemisphere. There is diffuse blurring of hinton white differentiation through the right cerebrum with diffusely shallow sulci. Brainstem and cerebellar hemispheres appears symmetric in size. There is vermian volume loss with somewhat inferior predominant vermian hypoplasia. The corpus callosum is dysmorphic with reduced AP dimension and global thickening. Small foci of gliosis in the right superior perisylvian and right frontal white matter. No visible left hemisphere abnormality. The hippocampi architecture and signal intensity appears preserved bilaterally. No evidence of acute infarct, mass lesion or hemorrhage. Ventricular System and Extra-Axial Spaces: Mild asymmetric ventricle size, right lateral ventricle slightly larger than left. Expanded partially empty sella. Craniocervical junction is unremarkable. Extracranial Structures: Expected arterial flow signal is observed at the skull base. Minimal paranasal sinus mucosal thickening. Mastoid air cells are clear. Nonspecific slightly dilated appearance of the optic nerve sheaths. Procedure Note Amaya Antonio MD - 01/19/2025 MRI BRAIN (SEIZURE) WITHOUT CONTRAST Referring clinician's provided indication for this examination in [facility]: *Seizure, refractory; Please perform seizure 2 protocol. TECHNIQUE: Multi-sequence, multi-planar MRI of the brain was performedwithout intravenous contrast. COMPARISON: None FINDINGS: Brain Parenchyma: The is right hemimegalencephaly involving the rightcerebral hemisphere. There is diffuse blurring of hinton whitedifferentiation through the right cerebrum with diffusely shallow sulci.Brainstem and cerebellar hemispheres appears symmetric in size. There isvermian volume loss with somewhat inferior predominant vermian hypoplasia.The corpus callosum is dysmorphic with reduced AP dimension and globalthickening. Small foci of gliosis in the right superior perisylvian andright frontal white matter. No visible left hemisphere abnormality. Thehippocampi architecture and signal intensity appears preservedbilaterally. No evidence of acute infarct, mass lesion or hemorrhage. Ventricular System and Extra-Axial Spaces: Mild asymmetric ventricle size,right lateral ventricle slightly larger than left. Expanded partiallyempty sella. Craniocervical junction is unremarkable. Extracranial Structures: Expected arterial flow signal is observed at theskull base. Minimal paranasal sinus mucosal thickening. Mastoid aircells are clear. Nonspecific slightly dilated appearance of the opticnerve sheaths. IMPRESSION: 1. Right hemimegalencephaly with diffusely abnormal appearance of theright cerebral hemisphere with shallow sulci and poor hinton whitedifferentiation. 2. Hypoplastic/dysplastic corpus callosum. 3. Partially empty sella. Celso Urban MD, PhD IMG MR HEAD/NECK Final Result * Lacosamide Level (12/16/2024 2:40 PM EDT) LACOSAMIDE 1.0 1.0 - 10.0 mcg/mL [facility] Comment: (NOTE) ADDITIONAL INFORMATION This test was developed and its performance characteristics determined by [facility] in a manner consistent with CLIA requirements. This test has not been cleared or approved by the U.S. Food and Drug Administration. Blood 12/16/2024 2:40 PM EDT 12/16/2024 2:44 PM EDT Celso Urban MD, PhD LAB BLOOD ORDERABLES F inal Result Performing Organization Address [facility] de Phone Number [facility] [address] [place] [phone] * Trileptal (oxcarbazepine) level (12/16/2024 2:40 PM EDT) OXCARBAZEPINE METAB 35 10 - 35 mcg/[facility] Comment: (NOTE) ADDITIONAL INFORMATION This test was developed and its performance characteristics determined by [facility] in a manner consistent with CLIA requirements. This test has not been cleared or approved by the U.S. Food and Drug Administration. Blood 12/16/2024 2:40 PM EDT 12/16/2024 2:44 PM EDT Celso Urban MD, PhD LAB BLOOD ORDERABLES F inal Result Performing Organization Address [facility] de Phone Number [facility] [address] [place] [address] * Zonisamide level (12/16/2024 2:40 PM EDT) ZONISAMIDE 25 10 - 40 mcg/mL [facility] Comment: (NOTE) ADDITIONAL INFORMATION This test was developed and its performance characteristics determined by [facility] in a manner consistent with CLIA requirements. This test has not been cleared or approved by the U.S. Food and Drug Administration. Blood 12/16/2024 2:40 PM EDT 12/16/2024 2:44 PM EDT Celso Urban MD, PhD LAB BLOOD ORDERABLES F inal Result [facility] [address] [place] [address] * CBC (12/16/2024 2:40 PM EDT) WBC 5.24 4.00 - 11.00 K/uL [facility] RBC 4.14 4.00 - 5.20 M/uL [facility] HGB 12.7 12.0 - 16.0 g/dL [facility] HCT 39.6 36.0 - 46.0 % [facility] PLT 269 150 - 450 K/uL [facility] MCV 95.7 80.0 - 100.0 fL [facility] MCH 30.7 27.0 - 31.0 pg [facility] MCHC 32.1 32.0 - 36.0 g/dL [facility] RDW 12.8 11.5 - 14.5 % [facility] MPV 9.3 8.4 - 12.0 fL [facility] NRBC 0.00 0.00 /100 WBCs [facility] ABSOLUTE NRBC 0.00 0.00 K/uL [facility] Blood 12/16/2024 2:40 PM EDT 12/16/2024 2:44 PM EDT Celso Urban MD, PhD LAB BLOOD BKR ORDERABL ES Final Result [facility] [address] [place] [phone] from Last 3 Months Insurance MEDICARE PART A & B [facility] ONE CARE MEDICARE REPLACEMENT N[place]LE MCCRAY [id number] MEDICARE PART A & B [facility] CARE MEDICARE REPLACEMENT [place] [id number] MEDICARE PART A & B [facility] CARE MEDICARE [place]PL[place] [address] MEDICARE PART A & B [facility] CARE MEDICARE REPLACEMENT [facility]ARE PART [facility] [employer] [facility] CARE MEDICARE REPLACEMENT [facility]ARE PART A [facility]3] ONE CARE MEDICARE REPLACEMENT [place]ICOLE MCCRAY [id number] Advance Directives For more information, please contact: [phone] (9AM - 5PM [facility] [place], Sunday-Sunday) * Full Code (Latest Code Status on File) Date Activated Date Inactivated Comments 01/26/2025 10:05 AM Question Answer Comments Code Status Confirmed With: Patient Care Teams Tire Design Engineer Relationship Specialty Start Date End Date Joy Garland PA [address] [place] [phone] PCP - General Physician Home Visit Field Care Manager 12/17/24 Additional Source Comments The information contained in this document represents components of the legal health record. It is not the complete legal health record.[facility]
--- OUTSIDE RECORDS SUMMARY | 2025-02-02 13:31 | XMS_ITS | Encounter Summary ---
Author Organization [facility] Address [address] [place] [phone] Phone Care Team Providers Care Information Systems Auditor Name Role Phone Pcp, Unknown Primary Care Provider Joy Witt Primary Care Provider + Encounter Details Date Type Department Care Team (Late st Contact Info) Description 12/16/2024 Procedure Pass [facility], [address] [id number] Social History Tobacco Use Types Packs/Day Years [...] Info) Description 02/19/2025 9:30 AM EST Telemedicine [facility], Department of Neurology [address] [place] [address] Ria Edwards CNP [address] [place] [id number] [email or web address] 05/14/2025 9:30 AM EST Telemedicine [facility], Department of Neurology [address] [place] [phone] Ria Edwards CNP [address] [place] [phone] [email or web address] 01/05/2026 2:30 PM EDT Office Visit [facility], Department of Neurology [address] [place] [address] Celso Urban MD, PhD [address] [place] [phone] [email or web address] documented as of this encounter Visit Diagnoses Not on filedocumented in this encounter Additional Health Concerns Assessment Noted Time PHQ-9 Depression Total Score: 0 12/10/19 25 5:49 PM EDT PHQ-2 Depression Total Score: 0 12/10/19 5:49 PM EDT documented as of this encounter Care Teams Information Systems Auditor Relationship Specialty Start Date End Date Pcp, Unknown PCP - General 10/14/24 12/16/24 Joy Garland PA [address] [place] [id number] PCP - General Physician Front Desk Receptionist 12/17/24 documented as of this encounter Additional Source Comments The information contained in this document represents components of the legal health record. It is not the complete legal health record.[facility]
--- OUTSIDE RECORDS SUMMARY | 2025-02-02 13:31 | XMS_ITS | Clinical Summary ---
Author Organization [employer] Address [address] [facility] [address] [place] [address] Care Team Providers Care Scoop Operator Name Role Phone Unavailable Primary Care Provider Unavailabl e Encounters Date Type Department Care Team Description 11/04/2024 Telephone [facility] MEDICINE [address] [place] [address] Michel Benz MD from Last 3 Months Social History Tobacco Use Types Packs/Day Years Used Date Smoking Tobacco: Never Assessed Comments Unknown Sex and Gender Information Value Date Recorded Sex Assigned at Female 01/09/2022 10:32 AM EDT Legal Sex Female 10:32 AM EDT Gender Identity Not on file Sexual Orientation Not on file Plan of Treatment Health Maintenance Due Date Last Done Comments Depression Screening 1990 Disability Screening 1990 Alcohol/Substance Use Screening 2002 Tobacco Screening 2002 Family Planning (PISQ) 2005 HPV Vaccines (1 - 3-dose series) 2005 DTaP/Tdap/Td Vaccines (1 - Tdap) 2009 Hepatitis B Vaccines (1 of 3 - 19+ 3-dose series) 2009 Pap Smear 2011 Cervical Cancer Screening 01/08/2020 HPV/Cotest 01/08/2020 COVID-19 Vaccine (1 - 2024-2 6 season) 2024 Influenza Vaccine (#1) 2024 Zoster Vaccines (1 of 2) 01/08/2040 RSV Patients and Pa tients Aged 60 years or older (1 - 1-dose 75+ series) 2065 HIB Vaccines Aged Out No longer eligi ble based on patient's age to complete this topic Hepatitis A Vaccines Aged Out No long er eligible based on patient's age to complete this topic IPV Vaccines Aged Out No longer eligi ble based on patient's age to complete this topic Meningococcal B Vaccine Aged Out No l onger eligible based on patient's age to complete this topic Meningococcal Vaccine Aged Out No ian donald eligible based on patient's age to complete this topic Pneumococcal Vaccine: Pediat rics (0 to 5 Years) and At-Risk Patients (6 to 49) Years Aged Out No longer eligible b ased on patient's age to complete this topic RSV under 20 months Aged Out No longe r eligible based on patient's age to complete this topic Rotavirus Vaccines Aged Out No longer eligible based on patient's age to complete this topic
== END 2025-02-02 13:44 | disposition home or self-care (01) ==
LOC: HO.HMCHD 10:46
PROVIDERS: PCP Physician Assistant Medical; Visit Provider Physician Assistant Medical
DX: G40.909 Epilepsy, unspecified, not intractable, without status epilepticus (principal); E03.9 Hypothyroidism, unspecified

== ENCOUNTER → 2025-02-02 10:45 | Outpatient (BNVA) | payer OTHER, SELFPAY | PROVIDERS: PCP Physician Assistant Medical; Visit Provider Physician Assistant Medical | DX: G40.909 Epilepsy, unspecified, not intractable, without status epilepticus (principal); M79.661 Pain in right lower leg; E03.9 Hypothyroidism, unspecified | CPT/HCPCS: 99212 ==